=== PATIENT | female | born 1945 | race Caucasian/White ===

== ENCOUNTER → 2016-05-30 08:11 | Outpatient (CLI) | payer MEDICARE | END | disposition home or self-care (01) | LOC: D.NM 08:11 | DX: Z68.20 Body mass index [BMI] 20.0-20.9, adult (principal) ==

== ENCOUNTER → 2017-09-02 19:31 | Outpatient (CLI) | payer MEDICARE | END | disposition home or self-care (01) | LOC: D.MAMMO 09:30 | DX: N63.14 Unspecified lump in the right breast, lower inner quadrant (principal) ==

== ENCOUNTER 2019-05-06 13:00 | Emergency (ER) | payer MEDICARE ==
[~2019-05-06] VITALS: Ht 167.6 cm; Wt 54.5 kg
[2019-05-06 13:14] VITALS: Ht 167.6 cm; Wt 54.5 kg
[2019-05-06] MEDS ORDERED: PROTONIX40 MG PO (13:17)
[2019-05-06] MEDS ORDERED: LISINOPRIL40 MG PO (13:17)
[2019-05-06] MEDS ORDERED: [UNRECOGNIZED DRUG - REMARK] (13:17)
[2019-05-06 14:01] LABS: CALC OSMOLALITY 274 mosm/kg (275-300); CALCIUM 9.1 mg/dL (8.5-10.1); CARBON DIOXIDE 25.3 mmol/L (21.0-32.0); CHLORIDE - SERUM 104 mmol/L (98-107); CREATININE - SERUM 0.7 mg/dL (0.6-1.3); GLUCOSE 80 mg/dL (74-106); SODIUM 139 mmol/L (136-145); UREA NITROGEN 7 mg/dL (7-18); eGFR NON AFRICAN AMERICAN 87 mL/min (90-120)
[2019-05-06 14:03] LABS: BASOPHILS 0.6 % (0-2); EOSINOPHILS 1.9 % (0-7); HEMATOCRIT 43.3 % (36.0-48.0); HEMOGLOBIN 14.7 g/dL (12-16); IMMATURE GRANULOCYTES 0.3 % (0-5); LYMPHOCYTES 36.4 % (15-50); MCH 35.6 pg (26.0-34.0); MCHC 33.9 g/dL (31.0-37.0); MCV 104.8 fL (80.0-100.0); MEAN PLATELET VOLUME 8.7 fL (7.4-10.4); NEUTROPHILS 47.8 % (40-80); PLATELET COUNT 312 10x3/uL (130-400); RBC 4.13 10x6/uL (4.00-5.40); RDW 12.8 % (11.5-14.5); WBC 3.2 10x3/uL (4.8-10.8)
[2019-05-06 14:07] LABS: ALBUMIN 3.6 g/dL (3.4-5.0); ALKALINE PHOSPHATASE 104 U/L (46-116); ALT (SGPT) 40 U/L (10-68); AMYLASE - SERUM 100 U/L (25-115); BILIRUBIN - TOTAL 0.35 mg/dL (0.2-1.3); LIPASE 209 U/L (73-393); PROTEIN - SERUM 7.3 g/dL (6.4-8.2)
[2019-05-06 14:17] LABS: COLOR YELLOW (YELLOW)
[2019-05-06 14:18] LABS: APPEARANCE CLEAR (CLEAR); BACTERIA FEW /hpf (NEGATIVE); BILIRUBIN NEGATIVE (NEGATIVE); EPITHELIAL CELLS OCC /hpf (0-5); GLUCOSE NEGATIVE (NEGATIVE); KETONE NEGATIVE (NEGATIVE); MUCUS <1+ /lpf (NONE SEEN); NITRITE NEGATIVE (NEGATIVE); PROTEIN NEGATIVE (NEGATIVE); RED CELLS - URINE 0-5 /hpf (0-5); SPECIFIC GRAVITY 1.015 (1.005-1.020); UROBILINOGEN NORMAL (NORMAL); WHITE CELLS - URINE RARE /hpf (NEGATIVE)
[2019-05-06 17:13] VITALS: BP 148/76
== END 2019-05-06 17:15 | disposition home or self-care (01) ==
LOC: D.ER 13:00
PROVIDERS: Family Medicine
DX: R10.11 Right upper quadrant pain (principal); R93.89 Abnormal findings on diagnostic imaging of other specified body structures; I10 Essential (primary) hypertension; Z72.0 Tobacco use

== ENCOUNTER 2019-05-28 14:11 | Emergency (ER) | payer MEDICARE ==
[~2019-05-28] VITALS: Ht 167.6 cm; Wt 54.5 kg
[~2019-05-28 14:11] MED LIST: LISINOPRIL40 MG PO; PROTONIX40 MG PO; [UNRECOGNIZED DRUG - REMARK]
[2019-05-28 14:23] VITALS: Ht 167.6 cm; Wt 54.5 kg
[2019-05-28] MEDS ORDERED: ZOFRAN ODT4 MG/UDTAB PO (14:30)
[2019-05-28] MEDS ORDERED: AMOXICILLIN500 M1 PO (14:43)
[2019-05-28] MEDS ORDERED: MUCINEX DM ER1 EAC1 PO (14:43)
[2019-05-28 14:55] VITALS: BP 128/62
== END 2019-05-28 14:57 | disposition home or self-care (01) ==
LOC: D.ER 14:11
DX: J06.9 Acute upper respiratory infection, unspecified (principal); J40 Bronchitis, not specified as acute or chronic; I10 Essential (primary) hypertension; F17.290 Nicotine dependence, other tobacco product, uncomplicated

== ENCOUNTER 2019-06-02 16:26 | Emergency (ER) | payer MEDICARE ==
[~2019-06-02] VITALS: Ht 167.6 cm; Wt 55.5 kg
[~2019-06-02 16:26] MED LIST changes: +AMOXICILLIN500 M1 PO; +MUCINEX DM ER1 EAC1 PO; +ZOFRAN ODT4 MG/UDTAB PO
[2019-06-02 16:44] VITALS: BP 141/79; Ht 167.6 cm; Wt 55.5 kg
[2019-06-02] MEDS ORDERED: DOXYCYCLINE HY100 M2 PO (19:17)
[2019-06-02] MEDS ORDERED: ALBUTEROL SULF8.5 GM INH (19:17)
[2019-06-02] MEDS ORDERED: TESSALON PERLE100 MG PO (19:17)
== END 2019-06-02 19:56 | disposition home or self-care (01) ==
LOC: D.ER 16:26
DX: J40 Bronchitis, not specified as acute or chronic (principal); I10 Essential (primary) hypertension; Z72.0 Tobacco use; K21.9 Gastro-esophageal reflux disease without esophagitis

== ENCOUNTER → 2019-06-10 14:37 | Outpatient (CLI) | payer MEDICARE ==
[2019-06-02 16:44] VITALS: BMI 19.7
[~2019-06-10 14:37] MED LIST changes: +ALBUTEROL SULF8.5 GM INH; +DOXYCYCLINE HY100 M2 PO; +TESSALON PERLE100 MG PO
== END | disposition home or self-care (01) ==
LOC: D.MRI 14:37
PROVIDERS: ATTEND Family Medicine
DX: M54.16 Radiculopathy, lumbar region (principal)

== ENCOUNTER → 2019-06-17 08:21 | Outpatient (CLI) | payer MEDICARE ==
[2019-06-02 16:44] VITALS: BMI 19.7
== END | disposition home or self-care (01) ==
LOC: D.MRI 06-15 10:00
PROVIDERS: ATTEND Family Medicine
DX: K83.1 Obstruction of bile duct (principal)

== ENCOUNTER 2019-09-21 14:50 | Inpatient (IN) | payer MEDICARE ==
[~2019-09-21] VITALS: Ht 167.6 cm; Wt 55.1 kg
--- NOTE | 2019-09-21 15:54 | NUR ---
RECIVED FROM OFFICE. TO ROOM 2127. PER REILLY. ADMIT ASSESSMENT PER RN
[2019-09-21 17:35] VITALS: BP 123/75; Ht 167.6 cm; Wt 55.1 kg
[2019-09-21 18:28] LABS: BASOPHILS 0.1 % (0-2); EOSINOPHILS 0.4 % (0-7); HEMATOCRIT 45.3 % (36.0-48.0); HEMOGLOBIN 15.2 g/dL (12-16); IMMATURE GRANULOCYTES 0.3 % (0-5); MCH 35.8 pg (26.0-34.0); MCHC 33.6 g/dL (31.0-37.0); MCV 106.6 fL (80.0-100.0); MEAN PLATELET VOLUME 9.1 fL (7.4-10.4); MONOCYTES 11.9 % (2-11); NEUTROPHILS 69.3 % (40-80); RBC 4.25 10x6/uL (4.00-5.40); RDW 12.6 % (11.5-14.5); WBC 7.2 10x3/uL (4.8-10.8)
[2019-09-21 18:41] LABS: BILIRUBIN NEGATIVE (NEGATIVE); GLUCOSE NEGATIVE (NEGATIVE); KETONE NEGATIVE (NEGATIVE); NITRITE NEGATIVE (NEGATIVE); RED CELLS - URINE 0-5 /hpf (0-5); UROBILINOGEN NORMAL (NORMAL)
[2019-09-21 18:42] LABS: BACTERIA FEW /hpf (NEGATIVE); WHITE CELLS - URINE OCC /hpf (NEGATIVE)
[2019-09-21 18:42] LABS: PLATELET COUNT 194 10x3/uL (130-400)
[2019-09-21 18:55] LABS: ANION GAP 16.4 mmol/L (8-16); BILIRUBIN - TOTAL 0.76 mg/dL (0.2-1.3); CALCIUM 8.6 mg/dL (8.5-10.1); CARBON DIOXIDE 25.5 mmol/L (21.0-32.0); CREATININE - SERUM 1.1 mg/dL (0.6-1.3); POTASSIUM - SERUM 3.9 mmol/L (3.5-5.1); PROTEIN - SERUM 7.5 g/dL (6.4-8.2)
--- NOTE | 2019-09-21 19:10 | NUR ---
CL ANSWERED, PT STATED THAT HER IV ISNT WORKING BECAUSE THE "BIG BAG ISNT DRIPPING" EXPLAINED TO PT THAT THE LITTLE BAG, WHICH IS HER ANTIBIOTIC, IS INFUSING RIGHT NOW SO THATS WHY THE BIG BAG OF SALINE ISNT, BUT WHEN THE LITTLE BAG OF ANTIBIOTICS IS DONE THE IV MACHINE WILL TRANSFER BACK OVER TO THE BIG BAG AND IT WILL START INFUSING AGAIN.
[2019-09-21 20:00] VITALS: BP 148/72
[2019-09-22] VITALS: BP 129/64
--- NOTE | 2019-09-22 02:24 | NUR ---
I have reviewed this patient and I concur with the Shift Assessment completed by the Licensed Practical Nurse today this shift.
--- NOTE | 2019-09-22 03:26 | NUR ---
ENTERED PTS ROOM, IV PUMP TURNED OFF, PT STATED THAT SHE DIDNT KNOW HOW IT HAPPENEND, IV PUMP TURNED BACK ON, NS INFUSING AT 75 CC/HR. IV SITE CLEAN AND DRY, NO SWELLING OR REDNESS NOTED.
[2019-09-22 04:00] VITALS: BP 133/62
[2019-09-22 06:01] LABS: BASOPHILS 0.2 % (0-2); EOSINOPHILS 2.4 % (0-7); HEMATOCRIT 39.8 % (36.0-48.0); HEMOGLOBIN 13.3 g/dL (12-16); IMMATURE GRANULOCYTES 0.5 % (0-5); LYMPHOCYTES 24.9 % (15-50); MCH 35.4 pg (26.0-34.0); MCHC 33.4 g/dL (31.0-37.0); MCV 105.9 fL (80.0-100.0); MEAN PLATELET VOLUME 9.3 fL (7.4-10.4); MONOCYTES 15.2 % (2-11); NEUTROPHILS 56.8 % (40-80); PLATELET COUNT 162 10x3/uL (130-400); RBC 3.76 10x6/uL (4.00-5.40); RDW 12.5 % (11.5-14.5)
[2019-09-22 06:08] LABS: INR 0.99 (0.85-1.17)
[2019-09-22 06:09] LABS: APTT 27.8 SECONDS (22.8-39.4)
[2019-09-22 06:34] LABS: ALBUMIN 3.3 g/dL (3.4-5.0); ALKALINE PHOSPHATASE 88 U/L (30-120); ALT (SGPT) 51 U/L (10-68); BILIRUBIN - TOTAL 1.15 mg/dL (0.2-1.3); CALCIUM 8.1 mg/dL (8.5-10.1); CARBON DIOXIDE 23.1 mmol/L (21.0-32.0); CHLORIDE - SERUM 96 mmol/L (98-107); PHOSPHOROUS 4.4 mg/dL (2.5-4.9); POTASSIUM - SERUM 3.8 mmol/L (3.5-5.1); PRO BNP 49 pg/mL (0-125); PROTEIN - SERUM 6.2 g/dL (6.4-8.2); SODIUM 129 mmol/L (136-145); THYROID STIMULATING HORMONE 1.38 uIU/mL (0.36-3.74); UREA NITROGEN 13 mg/dL (7-18); eGFR NON AFRICAN AMERICAN 75 mL/min (90-120)
[2019-09-22 06:35] LABS: WBC 4.1 10x3/uL (4.8-10.8)
[2019-09-22 06:36] LABS: CALC OSMOLALITY 258 mosm/kg (275-300); CREATININE - SERUM 0.8 mg/dL (0.6-1.3); GLUCOSE 93 mg/dL (74-106)
--- NOTE | 2019-09-22 07:21 | NUR ---
ASSESSMENT DONE. DENIES NEEDS
--- NOTE | 2019-09-22 10:21 | NUR ---
I have reviewed this patient and I concur with the Shift Assessment completed by the Licensed Practical Nurse today this shift.
[2019-09-22 11:09] VITALS: BP 144/60
[2019-09-22 13:49] VITALS: BP 150/70
[2019-09-22 17:24] LABS: BASOPHILS 0.2 % (0-2); EOSINOPHILS 0.8 % (0-7); HEMATOCRIT 38.8 % (36.0-48.0); HEMOGLOBIN 12.9 g/dL (12-16); IMMATURE GRANULOCYTES 0.6 % (0-5); LYMPHOCYTES 19.1 % (15-50); MCH 35.5 pg (26.0-34.0); MCHC 33.2 g/dL (31.0-37.0); MCV 106.9 fL (80.0-100.0); MEAN PLATELET VOLUME 9.5 fL (7.4-10.4); MONOCYTES 13.6 % (2-11); NEUTROPHILS 65.7 % (40-80); PLATELET COUNT 160 10x3/uL (130-400); RBC 3.63 10x6/uL (4.00-5.40); RDW 12.5 % (11.5-14.5); WBC 5.1 10x3/uL (4.8-10.8)
[2019-09-22 17:33] LABS: APTT 28.2 SECONDS (22.8-39.4); INR 0.98 (0.85-1.17); PROTIME 12.9 SECONDS (11.6-15.0)
[2019-09-22 18:31] VITALS: BP 150/70
--- NOTE | 2019-09-22 19:57 | NUR ---
SAND POLISHER AT BED SIDE, PT UP TO SHOWER.
[2019-09-22 20:00] VITALS: BP 147/54
--- NOTE | 2019-09-22 22:33 | NUR ---
ENTERED PTS ROOM, PT AWAKE, LYING IN BED, ASKED IF PT HAD ANY NEEDS AT THIS TIME, PT STATED NO. THIS NURSE NOTICED THAT THE ROOM SMELLED LIKE CIGARETS, WHEN ASKED PT DENIES SMOKING, INFORMED PT THAT SHE IS NOT ALLOWED TO SMOKE IN HER HOSPITAL ROOM, PT STATED UNDERSTANDING.
--- NOTE | 2019-09-23 02:50 | NUR ---
I have reviewed this patient and I concur with the Shift Assessment completed by the Licensed Practical Nurse today this shift.
[2019-09-23 05:30] LABS: BASOPHILS 0.2 % (0-2); EOSINOPHILS 2.4 % (0-7); HEMATOCRIT 36.1 % (36.0-48.0); IMMATURE GRANULOCYTES 0.5 % (0-5); LYMPHOCYTES 25.8 % (15-50); MCH 35.1 pg (26.0-34.0); MCHC 33.2 g/dL (31.0-37.0); MCV 105.6 fL (80.0-100.0); MEAN PLATELET VOLUME 8.9 fL (7.4-10.4); MONOCYTES 15.5 % (2-11); NEUTROPHILS 55.6 % (40-80); PLATELET COUNT 132 10x3/uL (130-400); RBC 3.42 10x6/uL (4.00-5.40); RDW 12.3 % (11.5-14.5); WBC 4.1 10x3/uL (4.8-10.8)
[2019-09-23 06:29] LABS: ALBUMIN 3.1 g/dL (3.4-5.0); ALKALINE PHOSPHATASE 78 U/L (30-120); BILIRUBIN - TOTAL 0.83 mg/dL (0.2-1.3); CALCIUM 7.9 mg/dL (8.5-10.1); CARBON DIOXIDE 24.1 mmol/L (21.0-32.0); CHLORIDE - SERUM 102 mmol/L (98-107); CREATININE - SERUM 0.7 mg/dL (0.6-1.3); GLUCOSE 94 mg/dL (74-106); MAGNESIUM - SERUM 1.9 mg/dL (1.8-2.4); PHOSPHOROUS 3.9 mg/dL (2.5-4.9); PROTEIN - SERUM 5.7 g/dL (6.4-8.2); SODIUM 135 mmol/L (136-145); eGFR NON AFRICAN AMERICAN 87 mL/min (90-120)
[2019-09-23 06:33] LABS: ALT (SGPT) 37 U/L (10-68); CALC OSMOLALITY 267 mosm/kg (275-300); POTASSIUM - SERUM 3.2 mmol/L (3.5-5.1); UREA NITROGEN 8 mg/dL (7-18)
[2019-09-23 07:43] VITALS: BP 88/37
--- NOTE | 2019-09-23 07:50 | NUR ---
ASSESSMEBNT DONE. DENIES NEEDS
[2019-09-23 08:27] VITALS: BP 150/71
[2019-09-23 11:31] VITALS: BP 88/44
[2019-09-23 15:44] VITALS: BP 166/77
--- NOTE | 2019-09-23 18:01 | NUR ---
PT HAS BEEN CONFUSED, AND KNOWS SHE IS SAY IT IS THE ANST. FROM PROCEDURE
[2019-09-23 20:30] VITALS: BP 140/75
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
[2019-09-24 00:30] VITALS: BP 118/57
--- NOTE | 2019-09-24 01:50 | NUR ---
PT RESTING WITH EYES CLOSED. RESP EVEN AND REGULAR. SR UP X3, CALL LIGHT WITHIN REACH AND BED ALARM.
--- NOTE | 2019-09-24 03:42 | NUR ---
PT ALERT AND ORIENTED TO PERSON, PLACE AND TIME AND SITUATION THIS AM. PT WANTING TO GO OUT TO SMOKE. INFORMED PT NO SMOKING IN HOSPITAL OR ON THE GROUNDS. NICOTINE PATCH BROUGHT TO PT. PT AGREED AT FIRST TO WEAR IT BUT DECLINED WHEN SHE WAS TOLD SHE COULD NOT SMOKE WHILE WEARING THE PATCH.
--- NOTE | 2019-09-24 04:15 | NUR ---
PT RESTING WITH EYES CLOSED. RESP EVEN AND REGULAR. SR UP X3, CALL LIGHT WITHIN REACH.
[2019-09-24 04:45] VITALS: BP 129/55
--- NOTE | 2019-09-24 06:31 | NUR ---
PT RESTING WIHT EYES CLOSED THIS AM. RESP EVEN AND REGULAR. NEEDS MET; WILL CONTINUE TO MONITOR.
--- NOTE | 2019-09-24 07:10 | NUR ---
REPORT RECEIVED FROM SENIOR PREMIUM AUDITOR AND PATIENT CARE ASSUMED. PATIENT SITTING UP IN BED AWAKE, ALERT AND ORIENTED X 4. PATIENT IS STABLE AND VSS. PATIENT DENIES ANY NEEDS OR PAIN. WILL CONTINUE WITH PLAN OF CARE. SR UP X 2 BED IN LOW POSITION AND CALL LIGHT IN REACH.
[2019-09-24 07:14] LABS: BASOPHILS 0.1 % (0-2); EOSINOPHILS 0.5 % (0-7); HEMATOCRIT 35.9 % (36.0-48.0); HEMOGLOBIN 11.9 g/dL (12-16); IMMATURE GRANULOCYTES 0.3 % (0-5); MCH 35.2 pg (26.0-34.0); MCHC 33.1 g/dL (31.0-37.0); MCV 106.2 fL (80.0-100.0); MEAN PLATELET VOLUME 9.8 fL (7.4-10.4); NEUTROPHILS 77.1 % (40-80); PLATELET COUNT 124 10x3/uL (130-400); RBC 3.38 10x6/uL (4.00-5.40); RDW 12.7 % (11.5-14.5)
[2019-09-24 07:18] LABS: WBC 9.7 10x3/uL (4.8-10.8)
[2019-09-24 07:28] LABS: ALBUMIN 2.8 g/dL (3.4-5.0); ALKALINE PHOSPHATASE 69 U/L (30-120); BILIRUBIN - TOTAL 1.09 mg/dL (0.2-1.3); CALC OSMOLALITY 261 mosm/kg (275-300); CARBON DIOXIDE 22.4 mmol/L (21.0-32.0); CHLORIDE - SERUM 100 mmol/L (98-107); CREATININE - SERUM 0.6 mg/dL (0.6-1.3); GLUCOSE 81 mg/dL (74-106); MAGNESIUM - SERUM 1.7 mg/dL (1.8-2.4); PHOSPHOROUS 3.1 mg/dL (2.5-4.9); POTASSIUM - SERUM 3.2 mmol/L (3.5-5.1); PROTEIN - SERUM 5.9 g/dL (6.4-8.2); SODIUM 132 mmol/L (136-145); UREA NITROGEN 6 mg/dL (7-18); eGFR NON AFRICAN AMERICAN > 90 mL/min (90-120)
[2019-09-24 07:29] LABS: ALT (SGPT) 26 U/L (10-68)
[2019-09-24 10:10] VITALS: BP 136/59
[2019-09-24 11:08] LABS: ACID FAST SMEAR Negative (()); AFB SPECIMEN PROCESSING Concentration (())
[2019-09-24 12:00] VITALS: BP 148/67
--- NOTE | 2019-09-24 14:52 | NUR ---
PATIENT LAYING IN BED ON BACK WITH EYES CLOSED AND BREATHING EVENLY. WILL CONTINUW WITH PLAN OF CARE. SR UPX 2 BED IN LOW POSITION AND CALL LIGHT IN REACH.
--- NOTE | 2019-09-24 15:03 | NUR ---
PATIENT AMBULATING IN HALLWAY WITH SLOW, STEADY GATE AND MASK ON.
--- NOTE | 2019-09-24 17:34 | NUR ---
RIGHT FOREARM IV INFILLTRATED. RESITED TO LT HAND 22 GAUGE WITH 2 ATTEMPTS. PATIENT TOLERATED WELL. IV FLUIDS AND ANTIBIOTICS INFUSING. WILL CONTINUE TO MONITOR. SR UP X 2 BED IN LOW POSITION AND CALL LIGHT IN REACH.
--- NOTE | 2019-09-24 20:24 | NUR ---
INITIAL ROUNDS COMPLETED AT 1915 HRS. PT DENIED ANY DISCOMFORT. ASSESSMENT COMPLETED AT 1940 HRS. PT ALERT AND ORIENTED TO PERSON, PLACE AND TIME. LIM. IV TO L WRIST WITH NS AT 75CC/HR. IV PATENT. LUNGS DIMINISHED IN BASES BILAT. SR UP X2, CALL LIGHT WITHIN REACH.
[2019-09-24 20:30] VITALS: BP 153/70
--- NOTE | 2019-09-24 22:07 | NUR ---
PM MEDS GIVEN. PT REFUSED TESSALON PERLE. PT CURRENTLY WATCHING TV. SR UP X2, CALL LIGHT WITHIN REACH.
--- NOTE | 2019-09-25 00:36 | NUR ---
PT RESTING WITH EYES CLOSED. RESP EVEN AND REGULAR. SR UP X2, CALL LIGHT WITHIN REACH.
--- NOTE | 2019-09-25 02:10 | NUR ---
PT RESTING WITH EYES CLOSED. RESP EVEN AND REGULAR. SR UP X2, CALL LIGHT WITHIN REACH.
--- NOTE | 2019-09-25 04:01 | NUR ---
PT RESTING WITH EYES CLOSED. RESP EVEN AND REGULAR. SR UP X2, CALL LIGHT WITHIN REACH.
[2019-09-25 04:30] VITALS: BP 152/77
--- NOTE | 2019-09-25 06:24 | NUR ---
VSS THROUGHOUT NIGHT. PT DENIED ANY DISCOMFORT. PT RESTED WELL DURING SHIFT. NEEDS MET; WILL CONTINUE TO MONITOR.
[2019-09-25 06:55] LABS: BASOPHILS 0 % (0-2); EOSINOPHILS 1.7 % (0-7); HEMATOCRIT 35.4 % (36.0-48.0); HEMOGLOBIN 11.6 g/dL (12-16); IMMATURE GRANULOCYTES 0.2 % (0-5); LYMPHOCYTES 16.6 % (15-50); MCH 34.8 pg (26.0-34.0); MCHC 32.8 g/dL (31.0-37.0); MCV 106.3 fL (80.0-100.0); MEAN PLATELET VOLUME 9.2 fL (7.4-10.4); MONOCYTES 18.9 % (2-11); NEUTROPHILS 62.6 % (40-80); PLATELET COUNT 119 10x3/uL (130-400); RBC 3.33 10x6/uL (4.00-5.40); RDW 12.7 % (11.5-14.5); WBC 4.8 10x3/uL (4.8-10.8)
--- NOTE | 2019-09-25 07:20 | NUR ---
RECIEVE REPORT. ALERT AND ORIENTED X4. RECIEVING UPDRAFT TREATMENT. DENIES SOB OR PAIN. CONTINUE PLAN OF CARE AND SAFETY PRECAUTIONS.
[2019-09-25 07:35] LABS: ALBUMIN 2.8 g/dL (3.4-5.0); ALKALINE PHOSPHATASE 65 U/L (30-120); ALT (SGPT) 21 U/L (10-68); BILIRUBIN - TOTAL 0.76 mg/dL (0.2-1.3); CALC OSMOLALITY 267 mosm/kg (275-300); CALCIUM 8.1 mg/dL (8.5-10.1); CARBON DIOXIDE 19.3 mmol/L (21.0-32.0); CHLORIDE - SERUM 104 mmol/L (98-107); CREATININE - SERUM 0.6 mg/dL (0.6-1.3); GLUCOSE 85 mg/dL (74-106); MAGNESIUM - SERUM 1.9 mg/dL (1.8-2.4); PHOSPHOROUS 3.3 mg/dL (2.5-4.9); POTASSIUM - SERUM 3.2 mmol/L (3.5-5.1); PROTEIN - SERUM 5.9 g/dL (6.4-8.2); SODIUM 136 mmol/L (136-145); UREA NITROGEN 5 mg/dL (7-18); eGFR NON AFRICAN AMERICAN > 90 mL/min (90-120)
[2019-09-25 09:00] VITALS: BP 170/92
[2019-09-25 16:00] VITALS: BP 127/67
--- NOTE | 2019-09-25 18:08 | NUR ---
ALERT AND ORIENTED X4. SITTING UP IN BED WATCHING TV. DENIES SOB OR PAIN. CONTINUE PLAN OF CARE AND SAFETY PRECAUTIONS.
[2019-09-25 20:00] VITALS: BP 166/77
--- NOTE | 2019-09-25 20:00 | NUR ---
REPORT RECIEVED AND INITIAL ROUNDS COMPLETED. PT C/O WANTING HER IV REMOVED. SAYING SHE DOESN'T NEED IT, THAT SHE WILL BE GOING HOME. EXPLAINED TO PATIENT THAT SHE AT LEAST NEEDS TO TAKE HER ABT AND THEN IV CAN BE SALINE LOCKED FOR THE NIGHT. CPOC.
--- NOTE | 2019-09-25 23:00 | NUR ---
PT TOOK BEDTIME MEDS, IV ZITHROMAX STARTED. AT THE SENIOR [facility]IVING POINT, PT DEMANDED THE IV ABT BE STOPPED AND IV BE REMOVED. TELLING NURSE SHE IS "DONE" WITH THIS. PT HAS PULLED ON IV SITE UNTIL IT IS ALMOST PULLED OUT. REMOVED IV AT THIS TIME. PT DID RECIEVE HALF OF THE ZITHROMAX. PT STATES SHE CAN START TAKING PILLS, BUT SHE WILL NOT BE STUCK AGAIN.
[2019-09-26 01:26] VITALS: BP 140/75
--- NOTE | 2019-09-26 04:00 | NUR ---
PT HAS RESTED SINCE IV WAS REMOVED. NO NEEDS, NO C/O. SR PER TELEMETRY. CPOC.
--- NOTE | 2019-09-26 04:52 | NUR ---
PT COMPLETELY DRESSED AND WALKING THE HALLWAY AROUND THE UNIT.
[2019-09-26 06:57] LABS: BASOPHILS 0 % (0-2); EOSINOPHILS 0.8 % (0-7); HEMATOCRIT 36.4 % (36.0-48.0); HEMOGLOBIN 12.2 g/dL (12-16); IMMATURE GRANULOCYTES 0.5 % (0-5); LYMPHOCYTES 21.5 % (15-50); MCHC 33.5 g/dL (31.0-37.0); MEAN PLATELET VOLUME 9.3 fL (7.4-10.4); MONOCYTES 18.9 % (2-11); NEUTROPHILS 58.3 % (40-80); RBC 3.49 10x6/uL (4.00-5.40); RDW 12.5 % (11.5-14.5)
[2019-09-26 06:59] LABS: MCV 104.3 fL (80.0-100.0); PLATELET COUNT 186 10x3/uL (130-400); WBC 6.3 10x3/uL (4.8-10.8)
[2019-09-26 07:19] LABS: ALBUMIN 3.2 g/dL (3.4-5.0); ALKALINE PHOSPHATASE 68 U/L (30-120); BILIRUBIN - TOTAL 0.61 mg/dL (0.2-1.3); CALCIUM 8.7 mg/dL (8.5-10.1); CHLORIDE - SERUM 101 mmol/L (98-107); CREATININE - SERUM 0.6 mg/dL (0.6-1.3); GLUCOSE 96 mg/dL (74-106); PHOSPHOROUS 2.9 mg/dL (2.5-4.9); PROTEIN - SERUM 6.9 g/dL (6.4-8.2); SODIUM 135 mmol/L (136-145); eGFR NON AFRICAN AMERICAN > 90 mL/min (90-120)
[2019-09-26 07:20] LABS: ALT (SGPT) 27 U/L (10-68); CALC OSMOLALITY 267 mosm/kg (275-300); POTASSIUM - SERUM 3.7 mmol/L (3.5-5.1); UREA NITROGEN 7 mg/dL (7-18)
--- NOTE | 2019-09-26 07:32 | NUR ---
PT AWAKE AND CONFUSED, CONTINOUSLY WALKING OUT OF HER ROOM AND WONDERING. CONTINULOUSLY REDIRECTED TO ROOM. CL INR EACH, SRX2,
[2019-09-26 09:08] LABS: FUNGUS STAIN Final report (())
[2019-09-26 09:22] VITALS: BP 153/70
[2019-09-26] MEDS ORDERED: LEVOFLOXACIN500 MG PO (11:49)
[2019-09-26] MEDS ORDERED: MUCINEX600 MG PO (11:50)
[2019-09-26] MEDS ORDERED: FLUTICASONE PRO16 GM NASAL (11:50)
[2019-09-26] MEDS ORDERED: TESSALON PERLE100 MG PO (11:50)
[2019-09-26] MEDS ORDERED: PREDNISONE20 MG PO (11:51)
--- NOTE | 2019-09-26 13:39 | MORECARE ---
CASE MANAGEMENT DISCHARGE SUMMARY PATIENT: JASON GREEN UNIT: [id number] ADM DATE: 09/21/19 AGE: 73 : 47 SEX: F ROOM/BED: D.6015 AUTHOR: PITA,DOC PHYSICIAN: REFERRING PHYSICIAN: RAJ BETTS MD DATE OF SERVICE: 09/26/19 Discharge Plan Patient Name: JASON GREEN Facility: [facility]:[place] : 1945 Planned Disposition: Home or Self Care Anticipated Discharge Date: 09/26/19 Discharge Date: Expected LOS: 5 Initial Reviewer: [email or web address] Initial Review Date: 09/21/2019 Generated: 09/26/19 2:38 pm Comments DCP- Discharge Planning Updated by [id number]: Hemalatha Montes on 09/26/19 12:[address] CM met with patient regarding DC needs/plans. Patient is A/O, cries easily. PCP: . [facility]acy: [facility] Patient states she lives alone, independently in her home, with 3 steps at the entry. 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 Emergency contact:: Luisa Monge (sister in [place]) [phone]. Patient denies use of Community resources BUCKLE STRAP PUNCHER. Denies the need for HHS, Rehab, SNF. Denies being hospitalized within the past 30 days. Patient states she will drive herself home, as her car is in the front parking lot.. Declines taxi services. DC IMM signed by patient, declines her copy. DCP- Discharge Planning Updated by [id number]: Hemalatha Montes on 09/26/19 9:[address] Per patient request, a was left admissions line to visit with the patient in regards to payments on her account. DCPIA - Discharge Planning Initial Assessment Updated by [email or web address]: Hemalatha Montes on 09/26/19 1:36 pm * Is the patient Alert and Oriented? Yes * How many steps to enter\exit or inside your home? * PCP Dr. Dayna Bishop * Pharmacy [facility] * Preadmission Environment Home Alone * ADLs Independent * Equipment None * List name and contact numbers for known caregivers / representatives who currently or will assist patient after discharge: Luisa Monge (sister, lives in [place]) [phone] * Verbal permission to speak to the caregivers and representatives has been obtained from the patient. N/A * Community resources currently utilized None * Additional services required to return to the preadmission environment? No * Can the patient safely return to the preadmission environment? Yes * Has this patient been hospitalized within the prior 30 days at any hospital? No Coverage Notice Reviewer: [id number] Aby Montes Notice Issued Date-Time: 09/26/2019 13:37 Notice Type: IM Discharge Notice Notice Delivered To: Patient Relationship to Patient: Self Destination Imagination Coordinator Name: Jason Green Delivery Method: HAND - Hand Delivered Sylvie Days: Prior Verbal Notification: Recipient Understood Notice: Yes Recipient Signature: Yes Med Rec Note Co-signed by Attending: Coverage Notice Comment: DC IMM signed by patient, declined copy. Original on chart. Patient Name: JASON GREEN Page [phone] at 1339 All edits/amendments must be made on the electronic document DICTATION DATE: 09/26/19 1338 VP [employer]: JEREMIAS 09/26/19 1338 RPT#: [id number] DC DATE: STATUS: ADM IN [facility] [address] [place] [address] END OF REPORT
--- NOTE | 2019-09-26 13:56 | NUR ---
I have reviewed this patient and I concur with the Shift Assessment completed by the Licensed Practical Nurse today this shift.
--- NOTE | 2019-09-26 13:58 | NUR ---
PT WAS UPSET SHE WAS NOT YET DISCHARGED. I EXPLAINED THAT I WAS BUSY WITH MULTIPLE PATIENTS BUT DOING MY BEST OF DO HER DISCHARGE. PT ANGRILY WENT TO HER ROOM. CAME OUT LATER BRINGING PHONE TO ME WITH MEDICAID ON THE PHONE TELLING ME TO TELL THEM WHY SHE'S NOT THEIR YET. DID. DISCHARGE. PATIENT ESCORTED OUT VIA AMBULATION, REFUSED WHEELCHAIR AND USED IT TO TRISH HER PERSONAL AFFECTS.
--- NOTE | 2019-09-28 09:22 | MORECARE ---
CASE MANAGEMENT DISCHARGE SUMMARY PATIENT: JASON GREEN UNIT: [id number] ADM DATE: 09/21/19 AGE: 73 : 47 SEX: F ROOM/BED: D.8380 AUTHOR: PITA,DOC PHYSICIAN: REFERRING PHYSICIAN: RAJ BETTS MD DATE OF SERVICE: 09/28/19 Discharge Plan Patient Name: JASON GREEN Facility: [facility]:[place] : 1945 Planned Disposition: Home or Self Care Anticipated Discharge Date: 09/26/19 Discharge Date: 09/26/2019 Expected LOS: 5 Initial Reviewer: ROBERT Initial Review Date: 09/21/2019 Generated: 09/28/19 10:21 am Comments DCP- Discharge Planning Updated by [id number]: Hemalatha Montes on 09/26/19 12:[address] CM met with patient regarding DC needs/plans. Patient is A/O, cries easily. PCP: . [facility]acy: [facility]. Patient states she lives alone, independently in her home, with 3 steps at the entry. 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 Emergency contact:: Luisa Monge (sister in [place]) [phone]. Patient denies use of Community resources UNDERWRITING CLERK. Denies the need for HHS, Rehab, SNF. Denies being hospitalized within the past 30 days. Patient states she will drive herself home, as her car is in the front parking lot.. Declines taxi services. DC IMM signed by patient, declines her copy. DCP- Discharge Planning Updated by [email or web address]: Hemalatha Montes on 09/26/19 9:[address] Per patient request, a was left admissions line to visit with the patient in regards to payments on her account. DCPIA - Discharge Planning Initial Assessment Updated by [email or web address]: Hemalatha Montes on 09/26/19 1:36 pm * Is the patient Alert and Oriented? Yes * How many steps to enter\exit or inside your home? * PCP Dr. Dayna Bishop * Pharmacy [facility] * Preadmission Environment Home Alone * ADLs Independent * Equipment None * List name and contact numbers for known caregivers / representatives who currently or will assist patient after discharge: Luisa Monge (sister, lives in [place]) [phone] * Verbal permission to speak to the caregivers and representatives has been obtained from the patient. N/A * Community resources currently utilized None * Additional services required to return to the preadmission environment? No * Can the patient safely return to the preadmission environment? Yes * Has this patient been hospitalized within the prior 30 days at any hospital? No Coverage Notice Reviewer: [id number] Aby Montes Notice Issued Date-Time: 09/26/2019 13:37 Notice Type: IM Discharge Notice Notice Delivered To: Patient Relationship to Patient: Self Sales Project Administrator Name: Jason Green Delivery Method: HAND - Hand Delivered Sylvie Days: Prior Verbal Notification: Recipient Understood Notice: Yes Recipient Signature: Yes Med Rec Note Co-signed by Attending: Coverage Notice Comment: DC IMM signed by patient, declined copy. Original on chart. Last DP export: 09/26/19 12:39 pm Patient Name: JASON GREEN Page [phone] at 0922 All edits/amendments must be made on the electronic document DICTATION DATE: 09/28/19920 DISCHARGE PLANNER: JEREMIAS 09/28/19920 RPT#: [id number] DC DATE:09/26/19 STATUS: DIS IN [facility] [address] [place] [address] END OF REPORT
== END 2019-09-26 14:03 | disposition home or self-care (01) | DRG 152 ==
LOC: D.M2 14:50
PROVIDERS: Family Medicine; Internal Medicine Pulmonary Disease; ADMIT Family Medicine; ATTEND Family Medicine
DX: J06.9 Acute upper respiratory infection, unspecified (principal); J18.9 Pneumonia, unspecified organism; J96.01 Acute respiratory failure with hypoxia; G93.41 Metabolic encephalopathy; J98.11 Atelectasis; E87.1 Hypo-osmolality and hyponatremia; N17.9 Acute kidney failure, unspecified; I10 Essential (primary) hypertension; K21.9 Gastro-esophageal reflux disease without esophagitis; F10.20 Alcohol dependence, uncomplicated; F17.210 Nicotine dependence, cigarettes, uncomplicated; J43.9 Emphysema, unspecified; D75.89 Other specified diseases of blood and blood-forming organs

== ENCOUNTER 2019-10-16 12:42 | Emergency (ER) | payer MEDICARE ==
[~2019-10-16] VITALS: Ht 167.6 cm; Wt 54.5 kg
[~2019-10-16 12:42] MED LIST changes: +FLUTICASONE PRO16 GM NASAL; +LEVOFLOXACIN500 MG PO; +MUCINEX600 MG PO; +PREDNISONE20 MG PO
[2019-10-16 12:44] VITALS: Ht 167.6 cm; Wt 54.5 kg
[2019-10-16 13:15] LABS: BASOPHILS 0.3 % (0-2); EOSINOPHILS 1.9 % (0-7); HEMATOCRIT 43.9 % (36.0-48.0); HEMOGLOBIN 14.9 g/dL (12-16); IMMATURE GRANULOCYTES 0.3 % (0-5); LYMPHOCYTES 38.8 % (15-50); MCH 36.1 pg (26.0-34.0); MCHC 33.9 g/dL (31.0-37.0); MCV 106.3 fL (80.0-100.0); MEAN PLATELET VOLUME 9.5 fL (7.4-10.4); MONOCYTES 13.2 % (2-11); NEUTROPHILS 45.5 % (40-80); PLATELET COUNT 187 10x3/uL (130-400); RBC 4.13 10x6/uL (4.00-5.40); RDW 13.7 % (11.5-14.5); WBC 3.6 10x3/uL (4.8-10.8)
[2019-10-16 13:32] LABS: CALC OSMOLALITY 261 mosm/kg (275-300); CALCIUM 8.9 mg/dL (8.5-10.1); CHLORIDE - SERUM 97 mmol/L (98-107); CREATININE - SERUM 0.8 mg/dL (0.6-1.3); GLUCOSE 102 mg/dL (74-106); POTASSIUM - SERUM 4.3 mmol/L (3.5-5.1); SODIUM 132 mmol/L (136-145); UREA NITROGEN 5 mg/dL (7-18); eGFR NON AFRICAN AMERICAN 75 mL/min (90-120)
[2019-10-16 13:40] LABS: ALBUMIN 3.9 g/dL (3.4-5.0); ALKALINE PHOSPHATASE 108 U/L (30-120); ALT (SGPT) 63 U/L (10-68); BILIRUBIN - TOTAL 0.85 mg/dL (0.2-1.3); PROTEIN - SERUM 7.6 g/dL (6.4-8.2); TROPONIN-I < 0.017 ng/mL (0.000-0.060)
[2019-10-16 14:20] LABS: BILIRUBIN NEGATIVE (NEGATIVE); GLUCOSE NEGATIVE (NEGATIVE); KETONE NEGATIVE (NEGATIVE); NITRITE NEGATIVE (NEGATIVE); UROBILINOGEN NORMAL (NORMAL)
[2019-10-16 14:21] LABS: BACTERIA FEW /hpf (NEGATIVE); EPITHELIAL CELLS NSEEN /hpf (0-5); RED CELLS - URINE 0-5 /hpf (0-5); WHITE CELLS - URINE 0-5 /hpf (NEGATIVE)
[2019-10-16 14:22] LABS: HYALINE CAST 0-5 /lpf (NONE SEEN)
[2019-10-16 16:26] VITALS: BP 146/72
== END 2019-10-16 16:26 | disposition home or self-care (01) ==
LOC: D.ER 12:42
PROVIDERS: Family Medicine
DX: E86.0 Dehydration (principal); R06.02 Shortness of breath; R05 Cough; R53.1 Weakness; I10 Essential (primary) hypertension; Z72.0 Tobacco use; K21.9 Gastro-esophageal reflux disease without esophagitis

== ENCOUNTER 2019-12-25 13:59 | Inpatient (IN) | payer MEDICARE ==
[~2019-12-25] VITALS: Ht 167.6 cm; Wt 54.4 kg
--- NOTE | 2019-12-25 15:02 | NUR ---
LACTIC ACID ELEVATED, CODE SEPSIS CALLED ON PT. BLOOD CULTURES DRAWN AND BOLUS STARTED ALONG WITH ANTIBIOTICS.
[2019-12-25 15:43] LABS: BASOPHILS 0.3 % (0-2); EOSINOPHILS 0 % (0-7); HEMATOCRIT 47.2 % (36.0-48.0); HEMOGLOBIN 16.5 g/dL (12-16); MCH 36.5 pg (26.0-34.0); MCV 104.4 fL (80.0-100.0); MEAN PLATELET VOLUME 9.5 fL (7.4-10.4); MONOCYTES 9.2 % (2-11); NEUTROPHILS 71.5 % (40-80); RBC 4.52 10x6/uL (4.00-5.40); RDW 12.2 % (11.5-14.5); WBC 3.7 10x3/uL (4.8-10.8)
[2019-12-25 15:44] LABS: APTT 26.1 SECONDS (22.8-39.4); CALC OSMOLALITY 257 mosm/kg (275-300); CALCIUM 8.6 mg/dL (8.5-10.1); CARBON DIOXIDE 22.1 mmol/L (21.0-32.0); CHLORIDE - SERUM 95 mmol/L (98-107); CREATININE - SERUM 0.7 mg/dL (0.6-1.3); GLUCOSE 88 mg/dL (74-106); INR 0.95 (0.85-1.17); POTASSIUM - SERUM 4.3 mmol/L (3.5-5.1); PROTIME 12.6 SECONDS (11.6-15.0); SODIUM 130 mmol/L (136-145); UREA NITROGEN 7 mg/dL (7-18); eGFR NON AFRICAN AMERICAN 87 mL/min (90-120)
[2019-12-25 15:45] LABS: PLATELET COUNT 94 10x3/uL (130-400)
[2019-12-25 15:47] LABS: PLATELET ESTIMATE DECREASED
[2019-12-25 15:58] LABS: ALBUMIN 3.5 g/dL (3.4-5.0); ALKALINE PHOSPHATASE 105 U/L (30-120); ALT (SGPT) 122 U/L (10-68); BILIRUBIN - TOTAL 0.94 mg/dL (0.2-1.3); CKMB 0.8 U/L (0.0-3.6); CREATINE KINASE 68 UL (21-215); PRO BNP 31 pg/mL (0-125); PROTEIN - SERUM 6.7 g/dL (6.4-8.2)
[2019-12-25 16:02] LABS: TROPONIN-I < 0.017 ng/mL (0.000-0.060)
[2019-12-25 16:12] LABS: NITRITE NEGATIVE (NEGATIVE)
[2019-12-25 16:13] LABS: BILIRUBIN NEGATIVE (NEGATIVE); GLUCOSE NEGATIVE (NEGATIVE); KETONE SMALL mg/dL (NEGATIVE); UROBILINOGEN NORMAL (NORMAL)
[2019-12-25 16:18] LABS: BACTERIA FEW /hpf (NEGATIVE); EPITHELIAL CELLS 0-5 /hpf (0-5); RED CELLS - URINE 0-5 /hpf (0-5); WHITE CELLS - URINE 0-5 /hpf (NEGATIVE)
--- NOTE | 2019-12-25 20:18 | NUR ---
PT TO ROOM 2138 VIA STRETCHER ACCOMPANIED BY HOSPITAL STAFF.
--- NOTE | 2019-12-25 20:42 | NUR ---
PAGED CARSON ABOUT LACTIC ACID 4.0
[2019-12-25 21:30] VITALS: BP 152/48
[2019-12-26 03:13] VITALS: BP 152/48; BMI 19.4
[2019-12-26 04:30] VITALS: BP 123/52
[2019-12-26 07:30] LABS: ALBUMIN 3.2 g/dL (3.4-5.0); ALKALINE PHOSPHATASE 94 U/L (30-120); ALT (SGPT) 92 U/L (10-68); BILIRUBIN - TOTAL 0.91 mg/dL (0.2-1.3); CALCIUM 8.7 mg/dL (8.5-10.1); CARBON DIOXIDE 21.4 mmol/L (21.0-32.0); CHLORIDE - SERUM 96 mmol/L (98-107); CREATININE - SERUM 0.6 mg/dL (0.6-1.3); GLUCOSE 105 mg/dL (74-106); MAGNESIUM - SERUM 1.7 mg/dL (1.8-2.4); POTASSIUM - SERUM 4.5 mmol/L (3.5-5.1); PRO BNP 433 pg/mL (0-125); PROTEIN - SERUM 6.2 g/dL (6.4-8.2); SODIUM 130 mmol/L (136-145); THYROID STIMULATING HORMONE 0.63 uIU/mL (0.36-3.74); eGFR NON AFRICAN AMERICAN > 90 mL/min (90-120)
[2019-12-26 07:31] LABS: CALC OSMOLALITY 259 mosm/kg (275-300); UREA NITROGEN 9 mg/dL (7-18)
[2019-12-26 12:10] VITALS: BP 144/72
[2019-12-26 13:42] LABS: HEMATOCRIT 44.3 % (36.0-48.0); HEMOGLOBIN 15.4 g/dL (12-16); MCH 36.2 pg (26.0-34.0); MCHC 34.8 g/dL (31.0-37.0); MEAN PLATELET VOLUME 10.3 fL (7.4-10.4); PLATELET COUNT 76 10x3/uL (130-400); RBC 4.26 10x6/uL (4.00-5.40); RDW 12.2 % (11.5-14.5); WBC 2.9 10x3/uL (4.8-10.8)
[2019-12-26 14:03] LABS: LYMPHOCYTES 13 % (15-50); MONOCYTES 1 % (2-11); NEUTROPHILS 86 % (40-80); PLATELET ESTIMATE DECREASED
[2019-12-26 14:18] VITALS: Ht 167.6 cm; Wt 54.4 kg
[2019-12-26] MEDS ORDERED: NICODERM CQ1 EAC3 TRANSDERM (16:45)
[2019-12-26] MEDS ORDERED: FEXOFENADINE HC60 MG PO (16:45)
[2019-12-26] MEDS ORDERED: TESSALON PERLE100 MG PO (16:46)
[2019-12-26] MEDS ORDERED: MUCINEX600 MG PO (16:46)
[2019-12-26] MEDS ORDERED: MYSOLINE 50 MG50 MG PO (16:46)
[2019-12-26] MEDS ORDERED: FLUTICASONE PRO16 GM NASAL (16:47)
[2019-12-26] MEDS ORDERED: DOXYCYCLINE HY100 M2 PO (16:48)
[2019-12-26] MEDS ORDERED: PREDNISONE10 MG PO (16:51)
[2019-12-26] MEDS ORDERED: DIFLUCAN150 MG PO (16:52)
--- NOTE | 2019-12-26 17:18 | NUR ---
ESCORTED OUT VIA AMBULATION, DENIES NEED WHEELCHIAR.
== END 2019-12-26 17:19 | disposition home or self-care (01) | DRG 189 ==
LOC: D.ER 13:59 → D.M2 19:00
PROVIDERS: Family Medicine; ADMIT Emergency Medicine; ATTEND Emergency Medicine
DX: J96.01 Acute respiratory failure with hypoxia (principal); E87.1 Hypo-osmolality and hyponatremia; I10 Essential (primary) hypertension; K21.9 Gastro-esophageal reflux disease without esophagitis; F17.200 Nicotine dependence, unspecified, uncomplicated; F10.20 Alcohol dependence, uncomplicated; M19.90 Unspecified osteoarthritis, unspecified site

== ENCOUNTER 2019-12-30 12:18 | Inpatient (IN) | payer MEDICARE ==
[~2019-12-30] VITALS: Ht 167.6 cm; Wt 56.7 kg
[~2019-12-30 12:18] MED LIST changes: +DIFLUCAN150 MG PO; +FEXOFENADINE HC60 MG PO; +MYSOLINE 50 MG50 MG PO; +NICODERM CQ1 EAC3 TRANSDERM; +PREDNISONE10 MG PO
[2019-12-30 13:22] VITALS: BP 141/88
--- NOTE | 2019-12-30 13:47 | NUR ---
NATALY established 22 ga r ac BLOOD OBATINED AND SENT TO LAB.
[2019-12-30 13:50] LABS: BASOPHILS 0.5 % (0-2); HEMOGLOBIN 15.5 g/dL (12-16); LYMPHOCYTES 34.2 % (15-50); MCH 35.8 pg (26.0-34.0); MCHC 34.4 g/dL (31.0-37.0); MCV 103.9 fL (80.0-100.0); MONOCYTES 9.5 % (2-11); NEUTROPHILS 54.8 % (40-80); PLATELET COUNT 90 10x3/uL (130-400); RBC 4.33 10x6/uL (4.00-5.40); RDW 12.3 % (11.5-14.5); WBC 4.1 10x3/uL (4.8-10.8)
[2019-12-30 13:57] LABS: CALC OSMOLALITY 271 mosm/kg (275-300); CALCIUM 7.9 mg/dL (8.5-10.1); CARBON DIOXIDE 28.3 mmol/L (21.0-32.0); CHLORIDE - SERUM 102 mmol/L (98-107); CREATININE - SERUM 0.7 mg/dL (0.6-1.3); GLUCOSE 95 mg/dL (74-106); POTASSIUM - SERUM 3.6 mmol/L (3.5-5.1); SODIUM 137 mmol/L (136-145); UREA NITROGEN 8 mg/dL (7-18); eGFR NON AFRICAN AMERICAN 87 mL/min (90-120)
[2019-12-30 14:03] LABS: ALBUMIN 3.5 g/dL (3.4-5.0); ALKALINE PHOSPHATASE 92 U/L (30-120); ALT (SGPT) 89 U/L (10-68); BILIRUBIN - TOTAL 0.42 mg/dL (0.2-1.3); PROTEIN - SERUM 6.8 g/dL (6.4-8.2)
--- NOTE | 2019-12-30 14:39 | NUR ---
ATTEMPTED TO CALL REPORT, NURSE UNAVAILABLE
[2019-12-30 14:46] LABS: PLATELET ESTIMATE DECREASED
[2019-12-30 15:00] VITALS: BP 156/76
--- NOTE | 2019-12-30 15:02 | NUR ---
REPORT TO GERARDO JAEMS
--- NOTE | 2019-12-30 15:05 | NUR ---
PRIOR TO PT GOING TO FLOOR, SHE STATED "I'M DONE WITH IVF'S. I DON'T WANT IT ANYMORE" IVF'S STOPPED
[2019-12-30 17:58] LABS: UDS - AMPHET NEGATIVE QUAL (NEGATIVE); UDS - BARB NEGATIVE QUAL (NEGATIVE); UDS - BENZO NEGATIVE QUAL (NEGATIVE); UDS - COCAINE NEGATIVE QUAL (NEGATIVE); UDS - OPIATE POSITIVE QUAL (NEGATIVE); UDS - PCP NEGATIVE QUAL (NEGATIVE); UDS - THC NEGATIVE QUAL (NEGATIVE)
[2019-12-30 18:48] VITALS: BP 144/71; BMI 20.2
[2019-12-30 20:30] VITALS: BP 154/76
[2019-12-31] VITALS (7 sets, daily range): BP systolic 124–144; BP diastolic 54–78; Ht 167.6 cm; Wt 56.7 kg
--- NOTE | 2019-12-31 03:42 | NUR ---
ASSESSED AT THE BEGINNING OF THE SHIFT. PT IS ALERT AND ORIENTED, ABLE TO VERBALIZE NEEDS. AT THE VERY START SHE LET US KNOW SHE WAS NOT HAPPY AND WANTED TO GO HOME. SHE WAS UP ABOUT THE ROOM UNTIL NIGHT MEDS WHICH SHE GOT EARLY AND SHE RECEIVED HER LIBRUIM AND ATIVAN AT THAT TIME. SHE HAS BEEN RESTING QUIET EVRE SINCE HER MEDS STARTED WORKING WITH NO DISTRESS NOTED.
[2019-12-31 05:45] LABS: BASOPHILS 0 % (0-2); EOSINOPHILS 0 % (0-7); HEMATOCRIT 41.6 % (36.0-48.0); HEMOGLOBIN 14.4 g/dL (12-16); IMMATURE GRANULOCYTES 0.4 % (0-5); LYMPHOCYTES 25.2 % (15-50); MCH 36.4 pg (26.0-34.0); MCHC 34.6 g/dL (31.0-37.0); MCV 105.1 fL (80.0-100.0); MEAN PLATELET VOLUME 10.4 fL (7.4-10.4); MONOCYTES 8.9 % (2-11); NEUTROPHILS 65.5 % (40-80); PLATELET COUNT 96 10x3/uL (130-400); RBC 3.96 10x6/uL (4.00-5.40); RDW 12.4 % (11.5-14.5); WBC 2.6 10x3/uL (4.8-10.8)
[2019-12-31 05:55] LABS: ALBUMIN 3.2 g/dL (3.4-5.0); ANION GAP 13.4 mmol/L (8-16); BILIRUBIN - TOTAL 0.84 mg/dL (0.2-1.3); CREATININE - SERUM 0.8 mg/dL (0.6-1.3); POTASSIUM - SERUM 4.4 mmol/L (3.5-5.1); PROTEIN - SERUM 6.6 g/dL (6.4-8.2)
--- NOTE | 2019-12-31 07:37 | NUR ---
WALKING ROUNDS COMPLETE, PT LAYING IN BED WITH EYES CLOSED, NO S/S OF PAIN OR NEEDS NOTED, IV INFUSING WITHOUT DIFFICULTY, SITE CLEAR, SR UP X2, CALL LIGHT IN REACH, BED LOW AND LOCKED, WILL CONTINUE TO MONITOR
--- NOTE | 2019-12-31 09:20 | NUR ---
TOOK AM MEDS WITHOUT DIFFICULTY, PT ON PHONE, PT DENIES PAIN OR NEEDS, GAVE PT ATIVAN FOR ANXIETY, WILL MONITOR, BED LOW AND LOCKED, SR UPX2, CALL LIGHT IN REACH
--- NOTE | 2019-12-31 15:49 | NUR ---
PT SHOWERED AND BACK IN BED, NO NEEDS OR PAIN OR DISCOMFORT MENTIONED OR NOTED, SR UP X2, CALL LIGHT IN REACH, BED LOW AND LOCKED, WILL MONITOR
--- NOTE | 2019-12-31 17:13 | NUR ---
PT EATING DINNER, PT DENIES PAIN OR NEEDS AT THIS TIME, BETSEY CONTINUE TO MONITOR
--- NOTE | 2019-12-31 19:42 | NUR ---
RECEIVED REPORT, WILL ASSUME CARE OF PT, VITALS ARE STABLE, NO DISTRESS NOTICED AT THIS TIME, PT IS SITTING UP IN BED, DENIES ANY NEEDS AT THIS TIME, BED IS LOW, SRX2, CALL LIGHT IN REACH, WILL CONTINUE PLAN OF CARE
--- NOTE | 2019-12-31 23:52 | NUR ---
COMPLAINING THAT RT WOKE HER UP TO GIVE BREATHING TREATMENT AND THEY WOULD BE BACK IN 4HRS, SHE SAID THAT THEY SHOULDNT DO TREATMENTS AT NIGHT, PT NEED THEIR REST, EXPLAIN THESE ARE THE DR. ORDERS
[2020-01-01 04:00] VITALS: BP 130/62
--- NOTE | 2020-01-01 04:38 | NUR ---
I have reviewed this patient and I concur with the Shift Assessment completed by the Licensed Practical Nurse today this shift.
[2020-01-01 05:20] LABS: BASOPHILS 0 % (0-2); EOSINOPHILS 0.3 % (0-7); HEMATOCRIT 36.5 % (36.0-48.0); HEMOGLOBIN 12.2 g/dL (12-16); IMMATURE GRANULOCYTES 0.3 % (0-5); LYMPHOCYTES 35.3 % (15-50); MCH 35.2 pg (26.0-34.0); MCHC 33.4 g/dL (31.0-37.0); MCV 105.2 fL (80.0-100.0); MEAN PLATELET VOLUME 9.7 fL (7.4-10.4); MONOCYTES 12.9 % (2-11); NEUTROPHILS 51.2 % (40-80); PLATELET COUNT 94 10x3/uL (130-400); RBC 3.47 10x6/uL (4.00-5.40); RDW 12.4 % (11.5-14.5)
[2020-01-01 05:25] LABS: WBC 3.8 10x3/uL (4.8-10.8)
[2020-01-01 05:36] LABS: PLATELET ESTIMATE DECREASED
[2020-01-01 05:47] LABS: ALBUMIN 2.9 g/dL (3.4-5.0); BILIRUBIN - TOTAL 0.5 mg/dL (0.2-1.3); CALCIUM 7.6 mg/dL (8.5-10.1); CARBON DIOXIDE 24.2 mmol/L (21.0-32.0); CREATININE - SERUM 0.8 mg/dL (0.6-1.3); PROTEIN - SERUM 5.4 g/dL (6.4-8.2)
[2020-01-01 05:49] LABS: ANION GAP 12.8 mmol/L (8-16)
[2020-01-01 08:16] VITALS: BP 137/60
--- NOTE | 2020-01-01 12:32 | NUR ---
PT VERY ANXIOUS STATES THAT SHE WANTS TO GO OUTSIDE TO SMOKER. GAVE HER 1MG OF ATIVAN AT THIS TIME PO. PT DENIES ANY OTHER NEEDS AT THIS TIME. CALL LIGHT IN REACH, NAD NOTED, WILL CONTINUE TO MONITOR.
[2020-01-01 12:57] VITALS: BP 172/75
--- NOTE | 2020-01-01 15:11 | NUR ---
PT REFUSED TO TAKE TESSALON, STATED " I AM TAKING TOO MANY MEDICATIONS, I DONT WANT IT."
[2020-01-01 17:15] VITALS: BP 132/70
--- NOTE | 2020-01-01 19:40 | NUR ---
UP AMBLITORY AROUND THE ROOM AND DENIES NEEDS AT THIS TIME BED LOW AND LOCKED
[2020-01-01 20:00] VITALS: BP 140/69
--- NOTE | 2020-01-01 22:00 | NUR ---
I have reviewed this patient and I concur with the Shift Assessment completed by the Licensed Practical Nurse today this shift.
[2020-01-02] VITALS: BP 161/77
[2020-01-02 04:00] VITALS: BP 126/69
[2020-01-02 07:01] LABS: ALBUMIN 2.8 g/dL (3.4-5.0); ANION GAP 10.1 mmol/L (8-16); BILIRUBIN - TOTAL 0.56 mg/dL (0.2-1.3); CALCIUM 7.9 mg/dL (8.5-10.1); CARBON DIOXIDE 26.1 mmol/L (21.0-32.0); CREATININE - SERUM 0.8 mg/dL (0.6-1.3); POTASSIUM - SERUM 3.2 mmol/L (3.5-5.1); PROTEIN - SERUM 5.6 g/dL (6.4-8.2)
[2020-01-02 07:06] LABS: BASOPHILS 0 % (0-2); EOSINOPHILS 0.5 % (0-7); HEMATOCRIT 36.8 % (36.0-48.0); HEMOGLOBIN 12.4 g/dL (12-16); IMMATURE GRANULOCYTES 0.3 % (0-5); LYMPHOCYTES 40.5 % (15-50); MCH 35.4 pg (26.0-34.0); MCHC 33.7 g/dL (31.0-37.0); MCV 105.1 fL (80.0-100.0); MEAN PLATELET VOLUME 9.7 fL (7.4-10.4); MONOCYTES 16.9 % (2-11); NEUTROPHILS 41.8 % (40-80); PLATELET COUNT 104 10x3/uL (130-400); RDW 12.6 % (11.5-14.5); WBC 3.7 10x3/uL (4.8-10.8)
--- NOTE | 2020-01-02 07:20 | NUR ---
RECEIVE SHIFT REPORT. RESTING IN BED WITH EYES CLOSED. NO SIGNS OF DISTRESS. WILL CONTINUE PLAN OF CARE AND SAFETY PRECAUTIONS.
[2020-01-02 11:35] VITALS: BP 142/75
[2020-01-02 14:47] VITALS: BP 134/92
--- NOTE | 2020-01-02 19:00 | NUR ---
EVENING ROUNDS COMPLETE. PT SITTING ON SIDE OF BED. AAOX4. REQUEST TO TAKE A SHOWER. WRAPED IV TO L FOREARM. PT VOICED THANKS. NO OTHER NEEDS VOICED AT THIS TIME. PT DENIES ANY PAIN. CL IN REACH, BED IN LOWEST POSITION.
[2020-01-02 20:00] VITALS: BP 126/58
--- NOTE | 2020-01-02 22:57 | NUR ---
OT NOTE: PT COMPLETED BED MOB WITH MOD I. PT COMPLETED HYGIENE TASKS WITH SETUP. PT EXHIBITED INTENTION TREMORS. [phone] THANK YOU,RICHELLE BENJAMIN
[2020-01-03 07:01] LABS: BASOPHILS 0 % (0-2); EOSINOPHILS 1.1 % (0-7); HEMATOCRIT 38.6 % (36.0-48.0); LYMPHOCYTES 44.8 % (15-50); MCH 35.2 pg (26.0-34.0); MCHC 33.7 g/dL (31.0-37.0); MCV 104.6 fL (80.0-100.0); MEAN PLATELET VOLUME 9.6 fL (7.4-10.4); MONOCYTES 16.4 % (2-11); NEUTROPHILS 37.7 % (40-80); RBC 3.69 10x6/uL (4.00-5.40); RDW 12.5 % (11.5-14.5); WBC 3.8 10x3/uL (4.8-10.8)
[2020-01-03 07:03] LABS: PLATELET COUNT 128 10x3/uL (130-400)
[2020-01-03 07:17] LABS: ALBUMIN 2.9 g/dL (3.4-5.0); ALKALINE PHOSPHATASE 61 U/L (30-120); ALT (SGPT) 48 U/L (10-68); BILIRUBIN - TOTAL 0.64 mg/dL (0.2-1.3); CARBON DIOXIDE 26.4 mmol/L (21.0-32.0); CHLORIDE - SERUM 104 mmol/L (98-107); CREATININE - SERUM 0.7 mg/dL (0.6-1.3); GLUCOSE 87 mg/dL (74-106); PROTEIN - SERUM 5.7 g/dL (6.4-8.2); SODIUM 139 mmol/L (136-145); eGFR NON AFRICAN AMERICAN 87 mL/min (90-120)
[2020-01-03 07:18] LABS: CALC OSMOLALITY 275 mosm/kg (275-300); UREA NITROGEN 10 mg/dL (7-18)
[2020-01-03 07:58] VITALS: BP 160/67
--- NOTE | 2020-01-03 08:45 | NUR ---
PASSING MORNING MEDICATIONS TO PATIENT AND SHE CHOSE WHICH ONES SHE WANTED TO TAKE AND SAID SHE WAS GOING HOME TODAY WITH OR WITHOUT THE DRS PERMISSION. ENCOURAGED HER TO WAIT FOR THE DR TO ROUND.
--- NOTE | 2020-01-03 09:30 | NUR ---
POTASSIUM 3.0, REPLACED PER PROTOCOL AND ORDER FOR LAB TO BE DRAWN PER PROTOCOL.
[2020-01-03] MEDS ORDERED: LEVOFLOXACIN500 MG PO (11:11)
[2020-01-03] MEDS ORDERED: PREDNISONE10 MG PO (11:12)
[2020-01-03] MEDS ORDERED: IPRAT-ALBUT 0.5-3 ML UPD (11:13)
[2020-01-03 11:40] VITALS: BP 139/76
--- NOTE | 2020-01-03 12:35 | MORECARE ---
CASE MANAGEMENT DISCHARGE SUMMARY PATIENT: JASON GREEN UNIT: [id number] ADM DATE: 12/30/19 AGE: 74 : 47 SEX: F ROOM/BED: D.6663 AUTHOR: PITA,DOC PHYSICIAN: REFERRING PHYSICIAN: RAJ BETTS MD DATE OF SERVICE: 01/03/20 Discharge Plan Patient Name: JASON GREEN Facility: [facility]:[place] : 1945 Planned Disposition: Home Health Service Anticipated Discharge Date: 01/03/20 Discharge Date: Expected LOS: 4 Initial Reviewer: [email or web address] Initial Review Date: 12/30/2019 Generated: 01/03/20 1:35 pm Comments DCP- Discharge Planning Updated by [email or web address]: Hemalatha Montes on 01/03/20 11:[address] Per Adithya with [facility], they are not in network with [facility]. [facility] is in network. CM contacted [facility], who states they can start care on . Faxed required information. Faxed Face Sheet to [facility] to see if they are in network, and Nebulizer order to [facility] with [facility]. CM met with patient to discuss initial discharge planning. Patient is in agreement to proceed with the assessment. Patient reports that she lives at home independently, alone. Patient is alert/oriented, tearful. Stairs/steps: 3. PCP: Dr. Rose. Pharmacy: [facility] Patient states she has been able to obtain all of her prescribed medications, but not take them, because she thought she did not need them. [facility]: Has agreed to [facility], in network with [facility].CM will contact [facility] to see if they are in network. DME: Denies having medical equipment. Nebulizer has been ordered, CM will order one, no specific DME, per patient. Emergency contact: Luisa Monge (sister) [phone]. 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 CM discussed the availability of HH, Rehab, SNF, OP Therapy, DME services. Patient feels safe returning to previous environment. Patient was hospitalized in the past 30 days. Patient denies the use of community resources HOT DIMPLING MACHINE OPERATOR. Transportation at time of discharge:Taxi. Patient states she did not take her medications ,due to Mucinex made her jittery and she felt like she didn't need the antibiotic and steroids. External Providers External Provider: [facility] Next Contact Date: Service Request Date: Service Type: Resolution: Reviewer: Comments: External Provider: Emelia Next Contact Date: Service Request Date: Service Type: Resolution: Reviewer: Comments: External Provider: [facility] Next Contact Date: Service Request Date: Service Type: Resolution: Reviewer: Comments: Coverage Notice Reviewer: [id number] Aby Montes Notice Issued Date-Time: 01/03/2020 12:14 Notice Type: IM Discharge Notice Notice Delivered To: Patient Relationship to Patient: Self Business Integration Analyst Name: Jason Green Delivery Method: HAND - Hand Delivered Sylvie Days: Prior Verbal Notification: Recipient Understood Notice: Yes Recipient Signature: Yes Med Rec Note Co-signed by Attending: Coverage Notice Comment: DC IMM signed/deliverd to patient. Original to chart Reviewer: [id number] Aby Montes Notice Issued Date-Time: 01/03/2020 12:14 Notice Type: Patient Choice Letter Notice Delivered To: Patient Relationship to Patient: Self Business Integration Analyst Name: Jason green Delivery Method: HAND - Hand Delivered Sylvie Days: Prior Verbal Notification: Recipient Understood Notice: Yes Recipient Signature: Yes Med Rec Note Co-signed by Attending: Coverage Notice Comment: Patient choice for Care [facility]. Patient Name: JASON GREEN Page [phone] at 1235 All edits/amendments must be made on the electronic document DICTATION DATE: 01/03/20 1235 TIER TRUCK DRIVER: JEREMIAS 01/03/20 1235 RPT#: [id number] DC DATE: STATUS: ADM IN [facility] [address] [place] [address] END OF REPORT
--- NOTE | 2020-01-03 13:08 | MORECARE ---
CASE MANAGEMENT DISCHARGE SUMMARY PATIENT: JASON GREEN UNIT: [id number] ADM DATE: 12/30/19 AGE: 74 : 47 SEX: F ROOM/BED: D.8209 AUTHOR: PITA,DOC PHYSICIAN: REFERRING PHYSICIAN: RAJ BETTS MD DATE OF SERVICE: 01/03/20 Discharge Plan Patient Name: JASON GREEN Facility: [facility]:[place] : 1945 Planned Disposition: Home Health Service Anticipated Discharge Date: 01/03/20 Discharge Date: Expected LOS: 4 Initial Reviewer: [id number] Initial Review Date: 12/30/2019 Generated: 01/03/20 2:07 pm Comments DCP- Discharge Planning Updated by [email or web address]: Hemalatha Montes on 01/03/20 11:[address] Per Adithya with [facility], they are not in network with [facility]. [facility] is in network. CM contacted Naz, who states they can start care on . Faxed required information. Faxed Face Sheet to [facility] to see if they are in network, and Nebulizer order to [place] with [facility]. CM met with patient to discuss initial discharge planning. Patient is in agreement to proceed with the assessment. Patient reports that she lives at home independently, alone. Patient is alert/oriented, tearful. Stairs/steps: 3. PCP: Dr. Rose. Pharmacy: [facility] Patient states she has been able to obtain all of her prescribed medications, but not take them, because she thought she did not need them. [facility]: Has agreed to [facility], in network with [facility].CM will contact [facility] to see if they are in network. DME: Denies having medical equipment. Nebulizer has been ordered, CM will order one, no specific DME, per patient. Emergency contact: Luisa Monge (sister) [phone]. 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 CM discussed the availability of HH, Rehab, SNF, OP Therapy, DME services. Patient feels safe returning to previous environment. Patient was hospitalized in the past 30 days. Patient denies the use of community resources CHAIR MECHANIC. Transportation at time of discharge:Taxi. Patient states she did not take her medications ,due to Mucinex made her jittery and she felt like she didn't need the antibiotic and steroids. Coverage Notice Reviewer: [email or web address] Aby Garciaa Jyoti Notice Issued Date-Time: 01/03/2020 12:14 Notice Type: IM Discharge Notice Notice Delivered To: Patient Relationship to Patient: Self University Counselor Name: Jason Green Delivery Method: HAND - Hand Delivered Sylvie Days: Prior Verbal Notification: Recipient Understood Notice: Yes Recipient Signature: Yes Med Rec Note Co-signed by Attending: Coverage Notice Comment: DC IMM signed/deliverd to patient. Original to chart Reviewer: [id number] Aby Montes Notice Issued Date-Time: 01/03/2020 12:14 Notice Type: Patient Choice Letter Notice Delivered To: Patient Relationship to Patient: Self University Counselor Name: Jason green Delivery Method: HAND - Hand Delivered Sylvie Days: Prior Verbal Notification: Recipient Understood Notice: Yes Recipient Signature: Yes Med Rec Note Co-signed by Attending: Coverage Notice Comment: Patient choice for Care [facility] IN[facility]. Last DP export: 01/03/20 11:35 a Patient Name: JASON GREEN Page [phone] at 1308 All edits/amendments must be made on the electronic document DICTATION DATE: 01/03/20 1307 FLIGHT ATTENDANT INFLIGHT SERVICES: JEREMIAS 01/03/20 1307 RPT#: [id number] DC DATE: STATUS: ADM IN [facility] [address] [place] [address] END OF REPORT
--- NOTE | 2020-01-03 13:38 | NUR ---
IV REMOVED, DISCHARGE PAPERS WITH PATIENT, TO EXIT VIA WHEELCHAIR AND TAXI HOME.
== END 2020-01-03 13:39 | disposition home health service (06) | DRG 189 ==
LOC: D.ER 12:18 → D.M2 15:03 → D.ER 15:09 → D.M2 01-03 13:39
PROVIDERS: Emergency Medicine; ADMIT Family Medicine; ATTEND Family Medicine
DX: J96.01 Acute respiratory failure with hypoxia (principal); J44.0 Chronic obstructive pulmonary disease with (acute) lower respiratory infection; J44.1 Chronic obstructive pulmonary disease with (acute) exacerbation; J20.9 Acute bronchitis, unspecified; F10.10 Alcohol abuse, uncomplicated; I10 Essential (primary) hypertension; K21.9 Gastro-esophageal reflux disease without esophagitis; F32.9 Major depressive disorder, single episode, unspecified; Z91.19 Patient's noncompliance with other medical treatment and regimen

== ENCOUNTER 2020-01-07 01:08 | Emergency (ER) | payer MEDICARE ==
[~2020-01-07] VITALS: Ht 167.6 cm; Wt 54.4 kg
[~2020-01-07 01:08] MED LIST changes: +IPRAT-ALBUT 0.5-3 ML UPD
[2020-01-07 01:09] VITALS: Ht 167.6 cm; Wt 54.4 kg
[2020-01-07] MEDS ORDERED: ULTRAM50 MG PO (02:31)
[2020-01-07 03:29] VITALS: BP 125/78
== END 2020-01-07 03:30 | disposition home or self-care (01) ==
LOC: D.ER 01:08
DX: S52.602A Unspecified fracture of lower end of left ulna, initial encounter for closed fracture (principal); W01.0XXA Fall on same level from slipping, tripping and stumbling without subsequent striking against object, initial encounter; Y92.002 Bathroom of unspecified non-institutional (private) residence as the place of occurrence of the external cause; I10 Essential (primary) hypertension; J44.9 Chronic obstructive pulmonary disease, unspecified; K21.9 Gastro-esophageal reflux disease without esophagitis; M79.602 Pain in left arm

== ENCOUNTER 2020-01-30 14:23 | Emergency (ER) | payer MEDICARE ==
[~2020-01-30] VITALS: Ht 167.6 cm; Wt 54.5 kg
[~2020-01-30 14:23] MED LIST changes: +ULTRAM50 MG PO
[2020-01-30 14:26] VITALS: Ht 167.6 cm; Wt 54.5 kg
[2020-01-30 15:02] LABS: HEMATOCRIT 41.8 % (36.0-48.0); HEMOGLOBIN 14.9 g/dL (12-16); MCH 35.6 pg (26.0-34.0); MCHC 35.6 g/dL (31.0-37.0); MEAN PLATELET VOLUME 9.9 fL (7.4-10.4); RBC 4.18 10x6/uL (4.00-5.40); RDW 12.7 % (11.5-14.5)
[2020-01-30 15:04] LABS: APTT 27.8 SECONDS (22.8-39.4); INR 0.94 (0.85-1.17); PROTIME 12.5 SECONDS (11.6-15.0)
[2020-01-30 15:09] LABS: CALC OSMOLALITY 254 mosm/kg (275-300); CALCIUM 8.2 mg/dL (8.5-10.1); CHLORIDE - SERUM 90 mmol/L (98-107); CREATININE - SERUM 0.6 mg/dL (0.6-1.3); GLUCOSE 91 mg/dL (74-106); POTASSIUM - SERUM 3.9 mmol/L (3.5-5.1); SODIUM 128 mmol/L (136-145); UREA NITROGEN 6 mg/dL (7-18); eGFR NON AFRICAN AMERICAN > 90 mL/min (90-120)
[2020-01-30 15:25] LABS: ALBUMIN 3.7 g/dL (3.4-5.0); ALKALINE PHOSPHATASE 127 U/L (30-120); ALT (SGPT) 316 U/L (10-68); BILIRUBIN - TOTAL 0.75 mg/dL (0.2-1.3); CKMB 1.3 U/L (0.0-3.6); CREATINE KINASE 65 UL (21-215); PRO BNP 30 pg/mL (0-125); PROTEIN - SERUM 6.7 g/dL (6.4-8.2); TROPONIN-I 0.018 ng/mL (0.000-0.060)
[2020-01-30 15:57] LABS: PLATELET COUNT 84 10x3/uL (130-400); WBC 1.7 10x3/uL (4.8-10.8)
[2020-01-30 16:59] LABS: EOSINOPHILS 2 % (0-7); LYMPHOCYTES 46 % (15-50); MONOCYTES 8 % (2-11); NEUTROPHILS 44 % (40-80); PLATELET ESTIMATE DECREASED
[2020-01-30 17:05] VITALS: BP 122/76
== END 2020-01-30 17:05 | disposition home or self-care (01) ==
LOC: D.ER 14:23
PROVIDERS: Family Medicine
DX: J44.9 Chronic obstructive pulmonary disease, unspecified (principal); R74.8 Abnormal levels of other serum enzymes; Z72.0 Tobacco use; Z91.19 Patient's noncompliance with other medical treatment and regimen; F10.20 Alcohol dependence, uncomplicated; I10 Essential (primary) hypertension; R05 Cough

== ENCOUNTER 2020-02-14 09:10 | Emergency (ER) | payer MEDICARE ==
[~2020-02-14] VITALS: Ht 167.6 cm; Wt 54.5 kg
[2020-02-14 09:17] VITALS: BP 145/82; Ht 167.6 cm; Wt 54.5 kg
[2020-02-14 09:56] LABS: BASOPHILS 0.3 % (0-2); EOSINOPHILS 0 % (0-7); HEMATOCRIT 47.2 % (36.0-48.0); HEMOGLOBIN 16.4 g/dL (12-16); LYMPHOCYTES 29.6 % (15-50); MCH 35.6 pg (26.0-34.0); MCHC 34.7 g/dL (31.0-37.0); MCV 102.4 fL (80.0-100.0); MEAN PLATELET VOLUME 9.5 fL (7.4-10.4); MONOCYTES 8.5 % (2-11); NEUTROPHILS 61.6 % (40-80); PLATELET COUNT 87 10x3/uL (130-400); RBC 4.61 10x6/uL (4.00-5.40); RDW 13.5 % (11.5-14.5); WBC 3.6 10x3/uL (4.8-10.8)
[2020-02-14 10:15] LABS: CALC OSMOLALITY 269 mosm/kg (275-300); CALCIUM 8.8 mg/dL (8.5-10.1); CARBON DIOXIDE 26.1 mmol/L (21.0-32.0); CHLORIDE - SERUM 95 mmol/L (98-107); CREATININE - SERUM 0.8 mg/dL (0.6-1.3); GLUCOSE 82 mg/dL (74-106); POTASSIUM - SERUM 3.8 mmol/L (3.5-5.1); SODIUM 136 mmol/L (136-145); UREA NITROGEN 9 mg/dL (7-18); eGFR NON AFRICAN AMERICAN 75 mL/min (90-120)
[2020-02-14 10:23] LABS: APTT 26.3 SECONDS (22.8-39.4); INR 0.87 (0.85-1.17); PROTIME 11.8 SECONDS (11.6-15.0)
[2020-02-14 10:32] LABS: ALBUMIN 4.2 g/dL (3.4-5.0); ALKALINE PHOSPHATASE 140 U/L (30-120); ALT (SGPT) 314 U/L (10-68); BILIRUBIN - TOTAL 0.72 mg/dL (0.2-1.3); CKMB 1.3 U/L (0.0-3.6); CREATINE KINASE 66 UL (21-215); PROTEIN - SERUM 7.7 g/dL (6.4-8.2)
[2020-02-14 10:33] LABS: TROPONIN-I < 0.017 ng/mL (0.000-0.060)
[2020-02-14 10:46] LABS: PLATELET ESTIMATE DECREASED
== END 2020-02-14 10:59 | disposition home or self-care (01) ==
LOC: D.ER 09:10
PROVIDERS: Family Medicine
DX: Z53.29 Procedure and treatment not carried out because of patient's decision for other reasons (principal); E87.2 Acidosis; J44.9 Chronic obstructive pulmonary disease, unspecified; Z72.0 Tobacco use; R05 Cough; R19.7 Diarrhea, unspecified; R06.02 Shortness of breath

== ENCOUNTER 2020-02-16 12:51 | Emergency (ER) | payer MEDICARE ==
[~2020-02-16] VITALS: Ht 167.6 cm; Wt 54.5 kg
[2020-02-16 12:55] VITALS: BP 91/67; Ht 167.6 cm; Wt 54.5 kg
== END 2020-02-16 13:37 | disposition left against medical advice (07) ==
LOC: D.ER 12:51
DX: R53.1 Weakness (principal); R06.00 Dyspnea, unspecified; J44.9 Chronic obstructive pulmonary disease, unspecified

== ENCOUNTER 2020-02-16 19:17 | Emergency (ER) | payer MEDICARE ==
[~2020-02-16] VITALS: Ht 167.6 cm; Wt 54.5 kg
[2020-02-16 19:22] VITALS: Ht 167.6 cm; Wt 54.5 kg
[2020-02-16 20:06] LABS: BASOPHILS 0.3 % (0-2); EOSINOPHILS 0 % (0-7); HEMATOCRIT 40.9 % (36.0-48.0); HEMOGLOBIN 14.5 g/dL (12-16); IMMATURE GRANULOCYTES 0.3 % (0-5); LYMPHOCYTES 17.6 % (15-50); MCH 35.8 pg (26.0-34.0); MCHC 35.5 g/dL (31.0-37.0); MEAN PLATELET VOLUME 9.5 fL (7.4-10.4); MONOCYTES 9.3 % (2-11); NEUTROPHILS 72.5 % (40-80); RBC 4.05 10x6/uL (4.00-5.40); RDW 13.5 % (11.5-14.5); WBC 3.8 10x3/uL (4.8-10.8)
[2020-02-16 20:08] LABS: CALC OSMOLALITY 260 mosm/kg (275-300); CALCIUM 8.3 mg/dL (8.5-10.1); CARBON DIOXIDE 23.9 mmol/L (21.0-32.0); CHLORIDE - SERUM 93 mmol/L (98-107); CREATININE - SERUM 0.7 mg/dL (0.6-1.3); GLUCOSE 100 mg/dL (74-106); POTASSIUM - SERUM 3.6 mmol/L (3.5-5.1); SODIUM 131 mmol/L (136-145); UREA NITROGEN 8 mg/dL (7-18); eGFR NON AFRICAN AMERICAN 87 mL/min (90-120)
[2020-02-16 20:10] LABS: PLATELET COUNT 60 10x3/uL (130-400)
[2020-02-16 20:21] LABS: ALBUMIN 3.7 g/dL (3.4-5.0); ALKALINE PHOSPHATASE 137 U/L (30-120); ALT (SGPT) 240 U/L (10-68); BILIRUBIN - TOTAL 0.91 mg/dL (0.2-1.3); PROTEIN - SERUM 7.1 g/dL (6.4-8.2); TROPONIN-I < 0.017 ng/mL (0.000-0.060)
[2020-02-16 21:21] LABS: UDS - AMPHET NEGATIVE QUAL (NEGATIVE); UDS - BARB NEGATIVE QUAL (NEGATIVE); UDS - BENZO NEGATIVE QUAL (NEGATIVE); UDS - COCAINE NEGATIVE QUAL (NEGATIVE); UDS - OPIATE NEGATIVE QUAL (NEGATIVE); UDS - PCP NEGATIVE QUAL (NEGATIVE); UDS - THC NEGATIVE QUAL (NEGATIVE)
[2020-02-16 21:23] LABS: BILIRUBIN NEGATIVE (NEGATIVE); KETONE LARGE mg/dL (NEGATIVE); NITRITE NEGATIVE (NEGATIVE); UROBILINOGEN NORMAL mg/dL (< 2)
[2020-02-16 21:24] LABS: BACTERIA FEW HPF (NONE SEEN); GRANULAR CAST OCC LPF (NONE SEEN); WHITE CELLS - URINE OCC HPF (0-4)
[2020-02-16 22:53] VITALS: BP 153/97
== END 2020-02-16 22:53 | disposition home or self-care (01) ==
LOC: D.ER 19:17
PROVIDERS: Emergency Medicine
DX: F10.129 Alcohol abuse with intoxication, unspecified (principal); Y90.9 Presence of alcohol in blood, level not specified; G25.2 Other specified forms of tremor; R94.5 Abnormal results of liver function studies; R74.0 Nonspecific elevation of levels of transaminase and lactic acid dehydrogenase [LDH]; E83.51 Hypocalcemia; E87.1 Hypo-osmolality and hyponatremia; D72.819 Decreased white blood cell count, unspecified; E46 Unspecified protein-calorie malnutrition; D69.6 Thrombocytopenia, unspecified; R53.1 Weakness; J44.9 Chronic obstructive pulmonary disease, unspecified

== ENCOUNTER 2020-02-18 23:27 | Emergency (ER) | payer MEDICARE ==
[~2020-02-18] VITALS: Ht 167.6 cm; Wt 54.5 kg
[2020-02-18 23:34] VITALS: Ht 167.6 cm; Wt 54.5 kg
[2020-02-19] LABS: HEMATOCRIT 36.2 % (36.0-48.0); HEMOGLOBIN 12.6 g/dL (12-16); MCH 34.9 pg (26.0-34.0); MCHC 34.8 g/dL (31.0-37.0); MCV 100.3 fL (80.0-100.0); MEAN PLATELET VOLUME 10.4 fL (7.4-10.4); PLATELET COUNT 58 10x3/uL (130-400); RBC 3.61 10x6/uL (4.00-5.40); RDW 13.4 % (11.5-14.5); WBC 2.8 10x3/uL (4.8-10.8)
[2020-02-19 00:08] LABS: BILIRUBIN NEGATIVE (NEGATIVE); KETONE NEGATIVE (NEGATIVE); NITRITE NEGATIVE (NEGATIVE); UROBILINOGEN NORMAL mg/dL (< 2)
[2020-02-19 00:09] LABS: BACTERIA FEW HPF (NONE SEEN); WHITE CELLS - URINE 0-5 HPF (0-4)
[2020-02-19 00:11] LABS: CALC OSMOLALITY 256 mosm/kg (275-300); CALCIUM 8.2 mg/dL (8.5-10.1); CARBON DIOXIDE 21.8 mmol/L (21.0-32.0); CHLORIDE - SERUM 94 mmol/L (98-107); CREATININE - SERUM 0.6 mg/dL (0.6-1.3); GLUCOSE 141 mg/dL (74-106); POTASSIUM - SERUM 3.2 mmol/L (3.5-5.1); SODIUM 128 mmol/L (136-145); UREA NITROGEN 6 mg/dL (7-18); eGFR NON AFRICAN AMERICAN > 90 mL/min (90-120)
[2020-02-19 00:22] LABS: ALBUMIN 3.5 g/dL (3.4-5.0); ALKALINE PHOSPHATASE 127 U/L (30-120); ALT (SGPT) 205 U/L (10-68); AMYLASE - SERUM 70 U/L (25-115); BILIRUBIN - TOTAL 1.09 mg/dL (0.2-1.3); LIPASE 310 U/L (73-393); PROTEIN - SERUM 6.7 g/dL (6.4-8.2); TROPONIN-I 0.028 ng/mL (0.000-0.060)
[2020-02-19 00:27] LABS: EOSINOPHILS 1 % (0-7); LYMPHOCYTES 19 % (15-50); MONOCYTES 12 % (2-11); NEUTROPHILS 68 % (40-80)
[2020-02-19 00:28] LABS: PLATELET ESTIMATE DECREASED
[2020-02-19] MEDS ORDERED: PEPCID40 MG PO (06:19)
[2020-02-19 06:39] VITALS: BP 130/88
== END 2020-02-19 06:39 | disposition home or self-care (01) ==
LOC: D.ER 23:27
PROVIDERS: Family Medicine
DX: F10.129 Alcohol abuse with intoxication, unspecified (principal); R11.2 Nausea with vomiting, unspecified; I10 Essential (primary) hypertension; F17.200 Nicotine dependence, unspecified, uncomplicated

== ENCOUNTER 2020-02-19 08:54 | Emergency (ER) | payer MEDICARE ==
[~2020-02-19] VITALS: Ht 167.6 cm; Wt 54.5 kg
[~2020-02-19 08:54] MED LIST changes: +PEPCID40 MG PO
[2020-02-19 08:55] VITALS: BP 151/73; Ht 167.6 cm; Wt 54.5 kg
== END 2020-02-19 11:18 | disposition left against medical advice (07) ==
LOC: D.ER 08:54
DX: F10.20 Alcohol dependence, uncomplicated (principal); Z53.29 Procedure and treatment not carried out because of patient's decision for other reasons; I10 Essential (primary) hypertension; Z72.0 Tobacco use

== ENCOUNTER 2020-02-20 09:58 | Emergency (ER) | payer MEDICARE ==
[~2020-02-20] VITALS: Ht 167.6 cm; Wt 54.5 kg
[2020-02-20 10:03] VITALS: BP 146/72; Ht 167.6 cm; Wt 54.5 kg
[2020-02-20 12:09] LABS: BASOPHILS 0 % (0-2); EOSINOPHILS 0.3 % (0-7); HEMATOCRIT 37.3 % (36.0-48.0); HEMOGLOBIN 12.8 g/dL (12-16); LYMPHOCYTES 22.7 % (15-50); MCH 35.1 pg (26.0-34.0); MCHC 34.3 g/dL (31.0-37.0); MCV 102.2 fL (80.0-100.0); MEAN PLATELET VOLUME 10.4 fL (7.4-10.4); MONOCYTES 15.5 % (2-11); NEUTROPHILS 61.5 % (40-80); PLATELET COUNT 55 10x3/uL (130-400); RBC 3.65 10x6/uL (4.00-5.40); RDW 13.4 % (11.5-14.5); WBC 3.2 10x3/uL (4.8-10.8)
[2020-02-20 12:31] LABS: ALBUMIN 3.3 g/dL (3.4-5.0); ALKALINE PHOSPHATASE 156 U/L (30-120); ALT (SGPT) 191 U/L (10-68); BILIRUBIN - TOTAL 1.71 mg/dL (0.2-1.3); CALC OSMOLALITY 262 mosm/kg (275-300); CALCIUM 8.5 mg/dL (8.5-10.1); CARBON DIOXIDE 25.7 mmol/L (21.0-32.0); CHLORIDE - SERUM 95 mmol/L (98-107); CREATININE - SERUM 0.7 mg/dL (0.6-1.3); GLUCOSE 99 mg/dL (74-106); PROTEIN - SERUM 6.5 g/dL (6.4-8.2); SODIUM 132 mmol/L (136-145); UREA NITROGEN 6 mg/dL (7-18); eGFR NON AFRICAN AMERICAN 87 mL/min (90-120)
[2020-02-20 12:57] LABS: POTASSIUM - SERUM 2.8 mmol/L (3.5-5.1)
[2020-02-20 13:48] LABS: PLATELET ESTIMATE DECREASED
== END 2020-02-20 14:09 | disposition left against medical advice (07) ==
LOC: D.ER 09:58
PROVIDERS: Emergency Medicine
DX: E87.6 Hypokalemia (principal); R79.89 Other specified abnormal findings of blood chemistry; E87.1 Hypo-osmolality and hyponatremia; R53.1 Weakness; R06.02 Shortness of breath; I10 Essential (primary) hypertension; J44.9 Chronic obstructive pulmonary disease, unspecified; Z72.0 Tobacco use

== ENCOUNTER 2020-03-11 09:11 | Emergency (ER) | payer MEDICARE ==
[~2020-03-11] VITALS: Ht 167.6 cm; Wt 48.5 kg
[2020-03-11 09:33] VITALS: BP 114/60; Ht 167.6 cm; Wt 48.5 kg
== END 2020-03-11 12:50 | disposition left against medical advice (07) ==
LOC: D.ER 09:11
DX: J06.9 Acute upper respiratory infection, unspecified (principal)

== ENCOUNTER 2020-07-25 16:05 | Emergency (ER) | payer MEDICARE ==
[~2020-07-25] VITALS: Ht 167.6 cm; Wt 54.5 kg
[~2020-07-25 16:05] MED LIST changes: +AZITHROMYCIN500 MG PO; +ELIQUIS5 MG PO; +IPRATROPIUM BRO30 M1 NASAL; +KEFLEX500 MG PO; +NAPROSYN500 MG PO; +NICODERM CQ1 EAC2 TOPICAL; +OMNICEF300 MG PO; +VENTOLIN HFA [SP8 GM INH; +ZPAK PO
[2020-07-25 16:07] VITALS: BP 153/75; Ht 167.6 cm; Wt 54.5 kg
[2020-07-25 16:56] LABS: APTT 25.7 SECONDS (22.8-39.4); INR 0.99 (0.85-1.17); PROTIME 12.1 SECONDS (11.6-15.0)
[2020-07-25 17:00] LABS: HEMATOCRIT 44.6 % (36.0-48.0); HEMOGLOBIN 15.4 g/dL (12-16); LYMPHOCYTE ABS# 0.88 10x3/uL (1.18-3.74); MCH 36.8 pg (26.0-34.0); MCHC 34.5 g/dL (31.0-37.0); MCV 106.4 fL (80.0-100.0); MEAN PLATELET VOLUME 9.9 fL (7.4-10.4); NEUTROPHIL ABS# 1.64 10x3/uL (1.56-6.13); PLATELET COUNT 82 10x3/uL (130-400); RBC 4.19 10x6/uL (4.00-5.40); WBC 2.8 10x3/uL (4.8-10.8)
[2020-07-25 17:29] LABS: ALBUMIN 3.5 g/dL (3.4-5.0); ALKALINE PHOSPHATASE 176 U/L (30-120); ALT (SGPT) 98 U/L (10-68); BILIRUBIN - TOTAL 0.54 mg/dL (0.2-1.3); CALCIUM 8.3 mg/dL (8.5-10.1); CARBON DIOXIDE 25.2 mmol/L (21.0-32.0); CHLORIDE - SERUM 100 mmol/L (98-107); CKMB 1.4 U/L (0.0-3.6); CREATINE KINASE 102 UL (21-215); CREATININE - SERUM 0.6 mg/dL (0.6-1.3); PRO BNP 52 pg/mL (0-125); PROTEIN - SERUM 6.8 g/dL (6.4-8.2); SODIUM 139 mmol/L (136-145); TROPONIN-I < 0.017 ng/mL (0.000-0.060); UREA NITROGEN 5 mg/dL (7-18); eGFR NON AFRICAN AMERICAN > 90 mL/min (90-120)
[2020-07-25 17:30] LABS: CALC OSMOLALITY 273 mosm/kg (275-300); GLUCOSE 80 mg/dL (74-106)
[2020-07-25 17:31] LABS: POTASSIUM - SERUM 2.8 mmol/L (3.5-5.1)
[2020-07-25 18:48] LABS: LYMPHOCYTES 31 % (15-50); MONOCYTES 1 % (2-11); NEUTROPHILS 68 % (40-80); PLATELET ESTIMATE DECREASED
== END 2020-07-25 19:00 | disposition left against medical advice (07) ==
LOC: D.ER 16:05
PROVIDERS: Family Medicine
DX: E86.0 Dehydration (principal); E87.6 Hypokalemia; Z53.29 Procedure and treatment not carried out because of patient's decision for other reasons; F10.129 Alcohol abuse with intoxication, unspecified; I10 Essential (primary) hypertension; J44.9 Chronic obstructive pulmonary disease, unspecified; K21.9 Gastro-esophageal reflux disease without esophagitis; Z72.0 Tobacco use; R09.89 Other specified symptoms and signs involving the circulatory and respiratory systems

== ENCOUNTER 2020-08-16 14:06 | Inpatient (IN) | payer MEDICARE ==
[~2020-08-16] VITALS: Ht 167.6 cm; Wt 48.1 kg
--- NOTE | 2020-08-16 14:24 | NUR ---
PATIENT APPEARS VERY ANXIOUS AND EVEN CONFUSED AT TIMES. PATIENT STATES SHE IS STARVING THAT SHE LIVES BY HERSELF AND DIDN'T FEEL LIKE GETTING UP TO GET ANYTHING TO EAT TODAY. PATIENT REFUSES BLOOD PRESSURE CUFF ON HER ARM AND REFUSES TO HAVE DOOR CLOSED. CALL MAGDALENO IN REACH, SIDE RAILS UP X 2, BED IN LOW POSITION. AWAKE AND ALERT.
--- NOTE | 2020-08-16 14:41 | NUR ---
spoke with aidee who lives in [place] who is very concerned about the patient. patient has home health but niece feels like she needs more care at home and that she may be unsafe. states [facility] patient and told her she had liver problems and high ammonia levels, that she has had diarrhea for weeks, states she has bruises everywhere and appears forgetful and confused at times when talking to her. dr. pace made aware and embedded case manager called to notify of [facility] case. Niece - Teresa Fátima [phone], Sister- Luisa Sam [phone].
[2020-08-16 14:45] LABS: BASOPHILS 0.7 % (0-2); EOSINOPHILS 0.5 % (0-7); HEMATOCRIT 41.4 % (36.0-48.0); HEMOGLOBIN 14.2 g/dL (12-16); IMMATURE GRANULOCYTES 0.2 % (0-5); LYMPHOCYTE ABS# 0.74 10x3/uL (1.18-3.74); LYMPHOCYTES 17.2 % (15-50); MCH 36.8 pg (26.0-34.0); MCHC 34.3 g/dL (31.0-37.0); MCV 107.3 fL (80.0-100.0); MEAN PLATELET VOLUME 9.9 fL (7.4-10.4); MONOCYTES 8.6 % (2-11); NEUTROPHIL ABS# 3.12 10x3/uL (1.56-6.13); NEUTROPHILS 72.8 % (40-80); RBC 3.86 10x6/uL (4.00-5.40); RDW 13.2 % (11.5-14.5); WBC 4.3 10x3/uL (4.8-10.8)
[2020-08-16 14:48] LABS: PLATELET COUNT 127 10x3/uL (130-400)
--- NOTE | 2020-08-16 14:53 | NUR ---
spoke with fish manager of case management who said she or another manager of case management would come see the patient and call and speak with family.
[2020-08-16 15:00] LABS: APTT 26.7 SECONDS (22.8-39.4); INR 1.08 (0.85-1.17)
[2020-08-16 15:07] LABS: ALBUMIN 3.1 g/dL (3.4-5.0); ALKALINE PHOSPHATASE 163 U/L (30-120); ALT (SGPT) 86 U/L (10-68); BILIRUBIN - TOTAL 0.93 mg/dL (0.2-1.3); CALCIUM 8.4 mg/dL (8.5-10.1); CARBON DIOXIDE 25.8 mmol/L (21.0-32.0); CHLORIDE - SERUM 101 mmol/L (98-107); CKMB 0.9 U/L (0.0-3.6); CREATINE KINASE 52 UL (21-215); CREATININE - SERUM 0.7 mg/dL (0.6-1.3); PRO BNP 51 pg/mL (0-125); PROTEIN - SERUM 6.5 g/dL (6.4-8.2); SODIUM 136 mmol/L (136-145); UREA NITROGEN 7 mg/dL (7-18); eGFR NON AFRICAN AMERICAN 87 mL/min (90-120)
[2020-08-16 15:09] LABS: CALC OSMOLALITY 272 mosm/kg (275-300); GLUCOSE 145 mg/dL (74-106)
[2020-08-16 15:10] LABS: TROPONIN-I < 0.017 ng/mL (0.000-0.060)
[2020-08-16 15:12] LABS: POTASSIUM - SERUM 2.5 mmol/L (3.5-5.1)
--- NOTE | 2020-08-16 15:58 | MORECARE ---
CASE MANAGEMENT DISCHARGE SUMMARY PATIENT: CAROLINE GREEN UNIT: [id number] ADM DATE: AGE: 74 : 47 SEX: F ROOM/BED: AUTHOR: PITA,DOC PHYSICIAN: REFERRING PHYSICIAN: CA JUDD MD DATE OF SERVICE: 08/16/20 Case Management Discharge Planning Summary DCP REVIEW SUMMARY ANTICIPATED D/C DATE: EXPECTED LOS : CASE STATUS: DCP Initiated INITIAL REVIEW: 08/16/2020 INITIAL REVIEWER: Judit Domingo FINAL DISCHARGE DISPOSITION: : FINAL REVIEWER: FINAL REVIEW DATE: DCP Focus Questions & Answers - Added on: QUESTION: ANSWER : PATIENT: CAROLINE GREEN ENCOUNTER: [id number] MEDICAL RECORD#: [id number] ADMISSION DATE: 08/16/2020 DISCHARGE DATE: ATTENDING MD: CA ROBBINS : AGE: 74 MARITAL STATUS: S DC PLAN ID: [id number] FACILITY: [facility] PRINTED ON: 08/16/20 15:58 CT All edits/amendments must be made on the electronic document DICTATION DATE: 08/16/201557 BUSINESS PROCESS MODELER: DM 08/16/20 1558 RPT#: [id number] DC DATE: STATUS: REG ER [facility] [address] [place] [address] END OF REPORT
--- NOTE | 2020-08-16 16:10 | MORECARE ---
CASE MANAGEMENT DISCHARGE SUMMARY PATIENT: CAROLINE GREEN UNIT: [id number] ADM DATE: AGE: 74 : 47 SEX: F ROOM/BED: AUTHOR: PITA,DOC PHYSICIAN: REFERRING PHYSICIAN: CA JUDD MD DATE OF SERVICE: 08/16/20 Case Management Discharge Planning Summary DCP REVIEW SUMMARY ANTICIPATED D/C DATE: EXPECTED LOS : CASE STATUS: DCP Initiated INITIAL REVIEW: 08/16/2020 INITIAL REVIEWER: Judit Domingo FINAL DISCHARGE DISPOSITION: : FINAL REVIEWER: FINAL REVIEW DATE: DCP Focus Questions & Answers DCP REV -DCP Review Added on: 08/16/20 4:04 pm QUESTION: ANSWER DCP Screen High Risk Factors: : 3 or more ED visits within the last 60 days DCP Evaluation Patient's ability to cope with chronic illness : d. No chronic illness Mental health screen: : No mental health history Would patient like to participate in any Care Coordination programs (if applicable): : Not applicable Patient gives permission to discuss discharge plans with: (name, relationship and number) : Racheal Phillips, Luisa Sam, , Physical Status: : Compromised nutritional status Baseline cognitive status: : *Oriented to person, place, situation, time and present DCP Re-evaluation Would patient like to participate in any Care Coordination programs (if applicable): : Not applicable PATIENT: CAROLINE GREEN ENCOUNTER: [id number] MEDICAL RECORD#: [id number] ADMISSION DATE: 08/16/2020 DISCHARGE DATE: ATTENDING MD: CA ROBBINS : AGE: 74 MARITAL STATUS: S DC PLAN ID: [id number] FACILITY: [facility] PRINTED ON: 08/16/20 16:10 CT All edits/amendments must be made on the electronic document DICTATION DATE: 08/16/201609 SERVICE COUNTER CASHIER: JEREMIAS 08/16/20 161 RPT#: [id number] DC DATE: STATUS: REG [facility] [address] [place] [address] END OF REPORT
--- NOTE | 2020-08-16 16:13 | NUR ---
PT SPOUSE ON PHONE STATES SHE IS ON PT CELL PHONE. [phone]
--- NOTE | 2020-08-16 16:23 | MORECARE ---
CASE MANAGEMENT DISCHARGE SUMMARY PATIENT: CAROLINE GREEN UNIT: [id number] ADM DATE: AGE: 74 : 47 SEX: F ROOM/BED: AUTHOR: PITADOC PHYSICIAN: REFERRING PHYSICIAN: CA JUDD MD DATE OF SERVICE: 08/16/20 Case Management Discharge Planning Summary DCP REVIEW SUMMARY ANTICIPATED D/C DATE: EXPECTED LOS : CASE STATUS: DCP Initiated INITIAL REVIEW: 08/16/2020 INITIAL REVIEWER: Judit Domingo FINAL DISCHARGE DISPOSITION: : FINAL REVIEWER: FINAL REVIEW DATE: DCP Focus Questions & Answers DCP REV -DCP Review Added on: 08/16/20 4:04 pm QUESTION: ANSWER DCP Screen High Risk Factors: : 3 or more ED visits within the last 60 days DCP Evaluation Patient's ability to cope with chronic illness : d. No chronic illness Mental health screen: : No mental health history Would patient like to participate in any Care Coordination programs (if applicable): : Not applicable Patient gives permission to discuss discharge plans with: (name, relationship and number) : Racheal Phillips, Sister Magaña, Physical Status: : Compromised nutritional status Baseline cognitive status: : *Oriented to person, place, situation, time and present Medication Management: : Patient states can afford medications Pharmacy name(s): : [facility] Does Patient have transportation to get home and to follow-up medical appointments when discharged from the hospital? : Yes Does the patient have electricity at home? : Yes Does the patient have running water in their house? : Yes Equipment in use: : Nebulizer Equipment agency name and contact information: : [facility] Psychosocial status: : Independent adult (65+) Abuse/Neglect: : Alcohol use - History of Resources / Services in place: : Home health Patient's current cognitive status: : *Oriented to person, place, situation, time and present DCP Re-evaluation Would patient like to participate in any Care Coordination programs (if applicable): : Not applicable PATIENT: CAROLINE GREEN ENCOUNTER: [id number] MEDICAL RECORD#: [id number] ADMISSION DATE: 08/16/2020 DISCHARGE DATE: ATTENDING MD: CA ROBBINS : AGE: 74 MARITAL STATUS: S DC PLAN ID: [id number] FACILITY: [facility] PRINTED ON: 08/16/20 16:23 CT All edits/amendments must be made on the electronic document DICTATION DATE: 08/16/201622 DECAL TRANSFERRER: JEREMIAS 08/16/201622 RPT#: [id number] DC DATE: STATUS: REG ER [facility] [address] [place] [address] END OF REPORT
--- NOTE | 2020-08-16 16:57 | MORECARE ---
CASE MANAGEMENT DISCHARGE SUMMARY PATIENT: CAROLINE GREEN UNIT: [id number] ADM DATE: AGE: 74 : 47 SEX: F ROOM/BED: AUTHOR: PITA,DOC PHYSICIAN: REFERRING PHYSICIAN: CA JUDD MD DATE OF SERVICE: 08/16/20 Case Management Discharge Planning Summary COMMENTS ENTERED DATE: 08/16/20 16:36 CT COMMENT TYPE: Discharge Planning REVIEWER: Judit Domingo CM met with patient to discuss discharge planning / needs. CM discussed availability of home health, rehab services, and medical equipment. Patient states she probably needs Assisted Living but she can't afford it and if it's the kind of place that takes all your money to pay for it, how would she get her cigarettes and wine. She then said that her plan would be to return home at discharge. CM asked patient if she would be willing to consider inpatient rehab if she qualified. Patient stated she wasn't wanting to move in her indefinitely. CM explained that inpatient rehab would be short term. Just long enough to help her get strong enough that she could take care of herself when she went back home. Patient then stated she would be willing to consider that if the doctor thought she needed it. CM obtained verbal consent to speak with patient's sister, Luisa Sam, and her Niece, Teresa Shine, . Patient states she doesn't have a PCP. CM asked patient if she wasn't seeing Dr. Maya any longer and patient replied "No". CM was notified by ER nurse, Cathy, that patient's niece had called concerned about patient going back home. CM called and spoke with niece, Teresa. Teresa informed CM that she felt her aunt had progressively gotten weaker over the last three weeks. She is very concerned and doesn't think the patient is able to take care of herself at home right now. CM and niece discussed Home Health-niece states [facility], [facility], [facility] Living Facilities, Truck Bench Mechanic Care Facilities and Inpatient Rehab. When CM asked niece about ETOH use, Niece states she has talked to her aunt at several different times a day and that her aunt never sounds intoxicated. Niece states she and her mother will encourage patient to participate in therapy so she can get strong enough to return home. CM will continue to follow. DCP REVIEW SUMMARY ANTICIPATED D/C DATE: EXPECTED LOS : CASE STATUS: DCP Initiated INITIAL REVIEW: 08/16/2020 INITIAL REVIEWER: Judit Domingo FINAL DISCHARGE DISPOSITION: : FINAL REVIEWER: FINAL REVIEW DATE: DCP Focus Questions & Answers DCP REV -DCP Review Added on: 08/16/20 4:04 pm QUESTION: ANSWER DCP Screen High Risk Factors: : 3 or more ED visits within the last 60 days DCP Evaluation Patient's ability to cope with chronic illness : d. No chronic illness Mental health screen: : No mental health history Would patient like to participate in any Care Coordination programs (if applicable): : Not applicable Patient gives permission to discuss discharge plans with: (name, relationship and number) : Teresa Fátima Racheal, Luisa Sam, Sister, Physical Status: : Compromised nutritional status Baseline cognitive status: : *Oriented to person, place, situation, time and present Medication Management: : Patient states can afford medications Pharmacy name(s): : [facility] Does Patient have transportation to get home and to follow-up medical appointments when discharged from the hospital? : Yes Does the patient have electricity at home? : Yes Does the patient have running water in their house? : Yes Equipment in use: : Nebulizer Equipment agency name and contact information: : [facility] Psychosocial status: : Independent adult (65+) Abuse/Neglect: : Alcohol use - History of Resources / Services in place: : Home health Patient's current cognitive status: : *Oriented to person, place, situation, time and present DCP Re-evaluation Would patient like to participate in any Care Coordination programs (if applicable): : Not applicable PATIENT: CAROLINE GREEN ENCOUNTER: [id number] MEDICAL RECORD#: [id number] ADMISSION DATE: 08/16/2020 DISCHARGE DATE: ATTENDING MD: CA ROBBINS : AGE: 74 MARITAL STATUS: S DC PLAN ID: [id number] FACILITY: [facility] PRINTED ON: 08/16/20 16:57 CT All edits/amendments must be made on the electronic document DICTATION DATE: 031656 OPERATIONS LIEUTENANT: DM 08/16/201656 RPT#: [id number] DC DATE: STATUS: REG [facility] [address] [place] [address] END OF REPORT
--- NOTE | 2020-08-16 18:15 | NUR ---
PT TO ROOM FROM ER VIA WHEELCHAIR. IV ANTIBIOTICS INFUSING ON ARRIVAL.
[2020-08-16 23:52] VITALS: BP 152/99; BMI 17.2
[2020-08-17] VITALS: BP 109/64
[2020-08-17 01:28] LABS: BILIRUBIN NEGATIVE (NEGATIVE); KETONE NEGATIVE (NEGATIVE); NITRITE NEGATIVE (NEGATIVE); UROBILINOGEN NORMAL mg/dL (< 2)
[2020-08-17 01:29] LABS: BACTERIA FEW HPF (NONE SEEN); SQUAMOUS EPITHELIAL 0-5 HPF (0-4); WHITE CELLS - URINE 0-5 HPF (0-4)
--- NOTE | 2020-08-17 02:48 | NUR ---
PATIENT ANXIOUS. DEMANDED TO HAVE IV DISCONNECTED AFTER ANTIBIOTICS WERE COMPLETED. STATES THAT WE ARE GIVING HER TOO MUCH FLUID. EDUCATED ON POTASSIUM LEVEL AND ORDERS. REFUSED ALL EVENING MEDICATIONS. REFUSED BLOOD SUGAR CHECK. ANXIETY UNRELIEVED BY MADISON MASON.
[2020-08-17 05:29] LABS: HEMOGLOBIN 13.5 g/dL (12-16); LYMPHOCYTE ABS# 0.31 10x3/uL (1.18-3.74); MCH 36.3 pg (26.0-34.0); MCHC 33.8 g/dL (31.0-37.0); MCV 107.5 fL (80.0-100.0); MEAN PLATELET VOLUME 10.5 fL (7.4-10.4); PLATELET COUNT 127 10x3/uL (130-400); RBC 3.72 10x6/uL (4.00-5.40); RDW 12.9 % (11.5-14.5)
[2020-08-17 05:41] LABS: WBC 2.4 10x3/uL (4.8-10.8)
[2020-08-17 05:57] LABS: ALBUMIN 2.8 g/dL (3.4-5.0); ALKALINE PHOSPHATASE 144 U/L (30-120); BILIRUBIN - TOTAL 0.71 mg/dL (0.2-1.3); CALCIUM 8.6 mg/dL (8.5-10.1); CARBON DIOXIDE 29.2 mmol/L (21.0-32.0); CHLORIDE - SERUM 99 mmol/L (98-107); CREATININE - SERUM 0.7 mg/dL (0.6-1.3); GLUCOSE 179 mg/dL (74-106); PROTEIN - SERUM 6.1 g/dL (6.4-8.2); SODIUM 135 mmol/L (136-145); eGFR NON AFRICAN AMERICAN 87 mL/min (90-120)
[2020-08-17 06:00] LABS: ALT (SGPT) 63 U/L (10-68); CALC OSMOLALITY 272 mosm/kg (275-300); POTASSIUM - SERUM 3.4 mmol/L (3.5-5.1); UREA NITROGEN 10 mg/dL (7-18)
--- NOTE | 2020-08-17 07:20 | NUR ---
PATIENT ADMITTED TO SMOKING CIGARETTE IN HER BATHROOM THIS MORNING. REFUSED CONFISCATION OF CIGARETTES, STATES SHE DOESN'T HAVE ANYMORE. EDUCATION PROVIDED ON DANGER OF SMOKING WITH OXYGEN, HOSPITAL POLICY ON SMOKING, FEDERAL REGULATIONS REGARDING SMOKING. . PATIENT STATES THAT NICOTINE PATCHES DONT WORK THE SAME. NOTIFIED NURSE WHEAT FARMER OF INCIDENT.
--- NOTE | 2020-08-17 08:00 | NUR ---
PT RECEIVED AWAKE AND ALERT. ASKING ABOUT IF IV CAN BE REMOVED. INSTRUCTED NEED FOR IV FOR ANTIBIOTICS.
[2020-08-17 08:25] VITALS: BP 136/73
[2020-08-17 10:24] LABS: LYMPHOCYTES 18 % (15-50); MONOCYTES 8 % (2-11); NEUTROPHILS 73 % (40-80); PLATELET ESTIMATE NORMAL; ROULEAUX OCC
--- NOTE | 2020-08-17 10:28 | NUR ---
UPDATED ERNST WHO IS IN [place] ON PLAN OF CARE.
[2020-08-17 11:35] VITALS: BP 164/76
[2020-08-17 13:34] VITALS: Ht 167.6 cm; Wt 48.1 kg
--- NOTE | 2020-08-17 14:24 | NUR ---
STAFF TO COME TO ME WITH CONCERN OF PATIENT SMOKING IN HER ROOM. I ASKED HER ABOUT IT AND SHE GAVE ME HER PYRAMID CIGS AND 7 LIGHTERS. THIS IS PLACED AT THE DESK AND NAME PLACED ON BAG.
[2020-08-17 14:51] VITALS: BP 117/89
--- NOTE | 2020-08-17 19:49 | NUR ---
PT AT THE DESK UPSET SHE DID NOT GET WINE WITH DINNER. NO WINE AVAILABE AT THE DESK. PT REFUSES ATIVAN, NO DISTRESS. WILL CTM.
--- NOTE | 2020-08-17 20:09 | NUR ---
PT AT THE DESK C/O OF HER CALL LIGHT NOT BEING ANSWERED. 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 REFUSING IV FLUIDS. DEMANDING IV BE REMOVED. EDUCATED PT ON NEED FOR IV ANTIBIOTICS THAT ARE CURRENTLY INFUSING. PT GRADY AND AGGRESSIVE WITH STAFF. REFUSES ATIVAN AGAIN WHEN OFFERED. ATTEMPTED TO MEET PT NEEDS. CL IN REACH AND BEING UTALIZED. WILL CTM.
[2020-08-17 21:44] VITALS: BP 151/64
[2020-08-18 01:07] VITALS: BP 129/69
[2020-08-18 05:37] LABS: BASOPHILS 0 % (0-2); EOSINOPHILS 0 % (0-7); HEMATOCRIT 39.8 % (36.0-48.0); IMMATURE GRANULOCYTES 0.2 % (0-5); MCH 35.8 pg (26.0-34.0); MCHC 32.7 g/dL (31.0-37.0); MEAN PLATELET VOLUME 10.8 fL (7.4-10.4); MONOCYTES 11.8 % (2-11); NEUTROPHIL ABS# 3.26 10x3/uL (1.56-6.13); PLATELET COUNT 126 10x3/uL (130-400); RBC 3.63 10x6/uL (4.00-5.40); RDW 13.2 % (11.5-14.5)
[2020-08-18 05:38] LABS: MCV 109.6 fL (80.0-100.0); WBC 4.7 10x3/uL (4.8-10.8)
[2020-08-18 06:10] LABS: ALBUMIN 2.8 g/dL (3.4-5.0); ANION GAP 9.9 mmol/L (8-16); BILIRUBIN - TOTAL 0.64 mg/dL (0.2-1.3); CALCIUM 8.3 mg/dL (8.5-10.1); CARBON DIOXIDE 30.5 mmol/L (21.0-32.0); CREATININE - SERUM 0.8 mg/dL (0.6-1.3); POTASSIUM - SERUM 3.4 mmol/L (3.5-5.1); PROTEIN - SERUM 5.9 g/dL (6.4-8.2)
[2020-08-18 08:25] VITALS: BP 150/70
--- NOTE | 2020-08-18 11:03 | NUR ---
PATIENT SITTING ON SIDE OF BED EATING BREAKFAST AAOX4, RESP EVEN AND NON LABORED, NO S/S OF DISTRESS, MEDICATIONS EXPLAINED TO PATIENT AND LAB RESULTS WENT OVER WELL, PATIENT AGREED TO INFUSING THE POTASSIUM BAG, PT CAME IN AND PATIENT WAS COMPLIANT WITH THEM, NO FURTHER NEEDS AT THIS TIME, KILLIAN, MARITZAP
[2020-08-18 11:12] VITALS: BP 148/82
--- NOTE | 2020-08-18 15:46 | NUR ---
I have reviewed this patient and I concur with the Shift Assessment completed by the Licensed Practical Nurse today this shift.
[2020-08-18 17:33] VITALS: BP 147/70
--- NOTE | 2020-08-18 19:55 | NUR ---
INITIAL ROUNDS AND ASSESSMENT COMPLETED. PT RESTING IN BED WITH NO DISTRESS. PLAN OF CARE REVIEWED. CALL LIGHT IN REACH.
[2020-08-18 21:07] VITALS: BP 148/77
[2020-08-19 05:08] LABS: BASOPHILS 0 % (0-2); EOSINOPHILS 0 % (0-7); HEMATOCRIT 38.4 % (36.0-48.0); HEMOGLOBIN 12.6 g/dL (12-16); LYMPHOCYTE ABS# 0.42 10x3/uL (1.18-3.74); LYMPHOCYTES 11.2 % (15-50); MCH 35.9 pg (26.0-34.0); MCHC 32.8 g/dL (31.0-37.0); MCV 109.4 fL (80.0-100.0); MEAN PLATELET VOLUME 10.8 fL (7.4-10.4); MONOCYTES 2.9 % (2-11); NEUTROPHIL ABS# 3.21 10x3/uL (1.56-6.13); NEUTROPHILS 85.9 % (40-80); PLATELET COUNT 125 10x3/uL (130-400); RBC 3.51 10x6/uL (4.00-5.40); RDW 13.1 % (11.5-14.5); WBC 3.7 10x3/uL (4.8-10.8)
[2020-08-19 05:11] VITALS: BP 144/73
[2020-08-19 05:27] LABS: ALBUMIN 2.7 g/dL (3.4-5.0); ALKALINE PHOSPHATASE 107 U/L (30-120); ALT (SGPT) 57 U/L (10-68); BILIRUBIN - TOTAL 0.52 mg/dL (0.2-1.3); CARBON DIOXIDE 26.9 mmol/L (21.0-32.0); CHLORIDE - SERUM 104 mmol/L (98-107); CREATININE - SERUM 0.6 mg/dL (0.6-1.3); POTASSIUM - SERUM 3.4 mmol/L (3.5-5.1); PROTEIN - SERUM 5.6 g/dL (6.4-8.2); SODIUM 139 mmol/L (136-145); UREA NITROGEN 10 mg/dL (7-18); eGFR NON AFRICAN AMERICAN > 90 mL/min (90-120)
[2020-08-19 05:34] LABS: CALC OSMOLALITY 280 mosm/kg (275-300); GLUCOSE 170 mg/dL (74-106)
[2020-08-19 07:51] VITALS: BP 146/76
[2020-08-19] MEDS ORDERED: TESSALON PERLE100 MG PO (08:17)
[2020-08-19] MEDS ORDERED: PREDNISONE10 MG PO (08:18)
[2020-08-19] MEDS ORDERED: AZITHROMYCIN500 MG PO (08:18)
[2020-08-19] MEDS ORDERED: MUCINEX600 MG PO (08:18)
--- NOTE | 2020-08-19 11:25 | MORECARE ---
CASE MANAGEMENT DISCHARGE SUMMARY PATIENT: CAROLINE GREEN UNIT: [id number] ADM DATE: 08/16/20 AGE: 74 : 47 SEX: F ROOM/BED: D.2111 AUTHOR: PITA,DOC PHYSICIAN: REFERRING PHYSICIAN: LONNIE ALCALA DO DATE OF SERVICE: 08/19/20 Case Management Discharge Planning Summary CT Patient Name: CAROLINE GREEN Attending MD : LONNIE FAULKNER Medical Record: [id number] Encounter : [id number] Facility : [address] [place] [address] Admission Date : 117:00 Center Discharge Date : [address] [place] [address] Date of : DC Plan ID : [id number] Age/Sex/Martia : 74/ F/S Printed on : 08/19/20 11:24 CT DCP Review Details Anticipated D/C: Expected LOS : Case Status : INITIATED - Initial Reviewe: [id number] - Judit Domingo Initial Review: 08/16/2020 Planned Disposi: - Final Discharge: 06 - Discharged/Trans to Home Under Care of [facility] in Anticipation of Skilled Care Final Reviewer : [email or web address] : Mario Sousa Final Review : 08/19/[address] Entered Date Type Reviewer 08/16/20 16:36 CT Discharge Planning Judit Domingo Comment CM met with patient to discuss discharge planning / needs. CM discussed availability of home health, rehab services, and medical equipment. Patient states she probably needs Assisted Living but she can't afford it and if it's the kind of place that takes all your money to pay for it, how would she get her cigarettes and wine. She then said that her plan would be to return home at discharge. CM asked patient if she would be willing to consider inpatient rehab if she qualified. Patient stated she wasn't wanting to move in her indefinitely. CM explained that inpatient rehab would be short term. Just long enough to help her get strong enough that she could take care of herself when she went back home. Patient then stated she would be willing to consider that if the doctor thought she needed it. CM obtained verbal consent to speak with patient's sister, Luisa Sam, and her Niece, Teresa Shine, . Patient states she doesn't have a PCP. CM asked patient if she wasn't seeing Dr. Maya any longer and patient replied "No". CM was notified by ER nurse, Cathy, that patient's niece had called concerned about patient going back home. CM called and spoke with niece, Teresa. Teresa informed CM that she felt her aunt had progressively gotten weaker over the last three weeks. She is very concerned and doesn't think the patient is able to take care of herself at home right now. CM and niece discussed Home Health-niece states [facility] from [facility], SNF, Assisted Living Facilities, Surveillance Observer Care Facilities and Inpatient Rehab. When CM asked niece about ETOH use, Niece states she has talked to her aunt at several different times a day and that her aunt never sounds intoxicated. Niece states she and her mother will encourage patient to participate in therapy so she can get strong enough to return home. CM will continue to follow. DCP Focus Questions & Answers DCP Screen High Risk Factors: 3 or more ED visits within the last 60 days DCP Evaluation Patient's current cognitive status: *Oriented to person, place, situation, time and present Patient's ability to cope with chronic illness d. No chronic illness Patient gives permission to discuss discharge Racheal Phillips, plans with: (name, relationship and number) Luisa Sam, Sister, Physical Status: Compromised nutritional status Baseline cognitive status: *Oriented to person, place, situation, time and present Medication Management: Patient states can afford medications Pharmacy name(s): [facility] Does Patient have transportation to get home and Yes to follow-up medical appointments when discharged from the hospital? Would patient like to participate in any Care Not applicable Coordination programs (if applicable): Does the patient have electricity at home? Yes Does the patient have running water in their Yes house? Equipment in use: Nebulizer Equipment agency name and contact information: [facility] screen: No mental health history Psychosocial status: Independent adult (65+) Abuse/Neglect: Alcohol use - History of Resources / Services in place: Home health DCP Re-evaluation Would patient like to participate in any Care Not applicable Coordination programs (if applicable): [facility] CAROLINE GREEN MR#: [id number] /Age/Sex/[id number] /74/F /S Attending Physician Name: BETHANY ACLALA [id number] Patient Account:[id number] [facility] Page -1 of 1 All edits/amendments must be made on the electronic document DICTATION DATE: 08/19/201123 TOURING PRODUCTION MANAGER: JEREMIAS 08/19/201123 RPT#: [id number] DC DATE: STATUS: ADM IN [facility] [address] [place] [address] END OF REPORT
--- NOTE | 2020-08-19 12:23 | MORECARE ---
CASE MANAGEMENT DISCHARGE SUMMARY PATIENT: CAROLINE GREEN UNIT: [id number] ADM DATE: 08/16/20 AGE: 74 : 47 SEX: F ROOM/BED: D.2111 AUTHOR: PITA,DOC PHYSICIAN: REFERRING PHYSICIAN: LONNIE ALCALA DO DATE OF SERVICE: 08/19/20 Case Management Discharge Planning Summary CT Patient Name: CAROLINE GREEN Attending MD : LONNIE FAULKNER Medical Record: [id number] Encounter : [id number] Facility : [address] [place] [address] Admission Date : 117:00 Center Discharge Date : [address] [place] [address] Date of : DC Plan ID : [id number] Age/Sex/Martia : 74/ F/S Printed on : 08/19/20 12:22 CT DCP Review Details Anticipated D/C: Expected LOS : Case Status : INITIATED - Initial Reviewe: [id number] - Jduit Domingo Initial Review: 08/16/2020 Planned Disposi: - Final Discharge: 06 - Discharged/Trans to Home Under Care of [facility] in Anticipation of Skilled Care Final Reviewer : [id number] : Mario Sousa Final Review : 08/19/[address] Entered Date Type Reviewer 08/19/20 12:13 CT Discharge Planning Mario Sousa Comment CM met with patient to complete DC plan and to evaluate needs. Patient stated that she does not want to go back to [facility] for home health. Patient stated that she would like [facility] as her choice. ONEYDA signed for [facility]. Patient stated that she has called [facility] and [facility] and [place] are the only home health agencies in network. CM informed patient that without a PCP then [facility] would be difficult. Patient stated that she will call the two doctors that [facility] told her were in network. Phone call to [facility], spoke with Yue. Yue stated that the referral can be faxed but the weekday team will look at it on Thursday and contact patient for SOC if there are no problems. Clinicals Faxed. Patient voiced no other needs at this time and is satisfied with DC plan. DC IMM delivered, explained, signed by the patient, and placed in chart. Signed form also left with the patient. CM will continue to follow and will assist as needed with dc plans/needs. 08/16/20 16:36 CT Discharge Planning Judit Domingo Comment CM met with patient to discuss discharge planning / needs. CM discussed availability of home health, rehab services, and medical equipment. Patient states she probably needs Assisted Living but she can't afford it and if it's the kind of place that takes all your money to pay for it, how would she get her cigarettes and wine. She then said that her plan would be to return home at discharge. CM asked patient if she would be willing to consider inpatient rehab if she qualified. Patient stated she wasn't wanting to move in her indefinitely. CM explained that inpatient rehab would be short term. Just long enough to help her get strong enough that she could take care of herself when she went back home. Patient then stated she would be willing to consider that if the doctor thought she needed it. CM obtained verbal consent to speak with patient's sister, Luisa Sam, and her Niece, Teresa Shine, . Patient states she doesn't have a PCP. CM asked patient if she wasn't seeing Dr. Maya any longer and patient replied "No". CM was notified by ER nurse, Cathy, that patient's niece had called concerned about patient going back home. CM called and spoke with niece, Teresa. Teresa informed CM that she felt her aunt had progressively gotten weaker over the last three weeks. She is very concerned and doesn't think the patient is able to take care of herself at home right now. CM and aidee discussed Home Health-niece states [facility] from [facility], [facility], [facility] Facilities, [facility] and Inpatient Rehab. When CM asked niece about ETOH use, Niece states she has talked to her aunt at several different times a day and that her aunt never sounds intoxicated. Nishila states she and her mother will encourage patient to participate in therapy so she can get strong enough to return home. CM will continue to follow. DCP Focus Questions & Answers DCP Screen High Risk Factors: 3 or more ED visits within the last 60 days DCP Evaluation Patient's current cognitive status: *Oriented to person, place, situation, time and present Patient's ability to cope with chronic illness d. No chronic illness Patient gives permission to discuss discharge Teresa Madhuri Shineclarence, plans with: (name, relationship and number) Luisa Sam, , Physical Status: Compromised nutritional status Baseline cognitive status: *Oriented to person, place, situation, time and present Medication Management: Patient states can afford medications Pharmacy name(s): [facility] [address] [facility] Does Patient have transportation to get home and Yes to follow-up medical appointments when discharged from the hospital? Would patient like to participate in any Care Not applicable Coordination programs (if applicable): Does the patient have electricity at home? Yes Does the patient have running water in their Yes house? Equipment in use: Nebulizer Equipment agency name and contact information: [facility] Mental health screen: No mental health history Psychosocial status: Independent adult (65+) Abuse/Neglect: Alcohol use - History of Resources / Services in place: Home health DCP Re-evaluation Would patient like to participate in any Care Not applicable Coordination programs (if applicable): [facility] CAROLINE GREEN MR#: [id number] /Age/Sex/Idzmje2-Ull-02 /74/F /S Attending Physician Name: BETHANY ALCALA [id number] Patient Account:[id number] [facility] Page -1 of 1 All edits/amendments must be made on the electronic document DICTATION DATE: 08/19/201221 YOUTH CARE SPECIALIST: JEREMIAS 08/19/20 1222 RPT#: [id number] DC DATE: STATUS: ADM IN [facility] [address] [place] [address] END OF REPORT
--- NOTE | 2020-08-19 12:37 | NUR ---
PT ALERT AND ORIENTED, TO D/C TODAY. REFUSED MEDICATIONS. PT OUT TO DESK FREQUENTLY WITH QUESTIONS, ANSWERED TO THE BEST OF OUR ABILITY. STATES RIDE WILL BE HERE AT 1400 TO GET HER. I/V OUT PER PTS INSITANCE STATING SHE WOULD TAKE IT OUT REGARDLESS. TIP INTACT. PT SOWERED SELF UNASSISTED, NO NOTED OR REPORTED DIFFICULTY. CL IN REACH, SRX2.
--- NOTE | 2020-08-19 13:22 | NUR ---
PT ESCORTED OUT VIA WHEELCHIAR TO POV, FRIEND DRIVING.
--- NOTE | 2020-08-19 13:27 | MORECARE ---
CASE MANAGEMENT DISCHARGE SUMMARY PATIENT: CAROLINE GREEN UNIT: [id number] ADM DATE: 08/16/20 AGE: 74 : 47 SEX: F ROOM/BED: D. AUTHOR: PITA,DOC PHYSICIAN: REFERRING PHYSICIAN: LONNIE ALCALA DO DATE OF SERVICE: 08/19/20 Case Management Discharge Planning Summary CT Patient Name: CAROLINE GREEN Attending MD : LONNIE FAULKNER Medical Record: [id number] Encounter : [id number] Facility : [address] [place] [address] Admission Date : 117:00 Center Discharge Date : 08/19/[address] [place] [address] Date of : DC Plan ID : [id number] Age/Sex/Martia : 74/ F/S Printed on : 08/19/20 13:25 CT DCP Review Details Anticipated D/C: Expected LOS : Case Status : INITIATED - Initial Reviewe: [id number] - Judit Domingo Initial Review: 08/16/2020 Planned Disposi: - Final Discharge: 06 - Discharged/Trans to Home Under Care of [facility] in Anticipation of Skilled Care Final Reviewer : [id number] : Mario Sousa Final Review : 08/19/[address] Entered Date Type Reviewer 08/19/20 12:13 CT Discharge Planning Mario Sousa Comment CM met with patient to complete DC plan and to evaluate needs. Patient stated that she does not want to go back to [facility] for home health. Patient stated that she would like [facility] as her choice. ONEYDA signed for [facility]. Patient stated that she has called [facility] and [facility] and [place] are the only home health agencies in network. CM informed patient that without a PCP then [facility] would be difficult. Patient stated that she will call the two doctors that [facility] told her were in network. Phone call to [facility], spoke with Yue. Yue stated that the referral can be faxed but the weekday team will look at it on Thursday and contact patient for SOC if there are no problems. Clinicals Faxed. Patient voiced no other needs at this time and is satisfied with DC plan. DC IMM delivered, explained, signed by the patient, and placed in chart. Signed form also left with the patient. CM will continue to follow and will assist as needed with dc plans/needs. 08/16/20 16:36 CT Discharge Planning Judit Domingo Comment CM met with patient to discuss discharge planning / needs. CM discussed availability of home health, rehab services, and medical equipment. Patient states she probably needs Assisted Living but she can't afford it and if it's the kind of place that takes all your money to pay for it, how would she get her cigarettes and wine. She then said that her plan would be to return home at discharge. CM asked patient if she would be willing to consider inpatient rehab if she qualified. Patient stated she wasn't wanting to move in her indefinitely. CM explained that inpatient rehab would be short term. Just long enough to help her get strong enough that she could take care of herself when she went back home. Patient then stated she would be willing to consider that if the doctor thought she needed it. CM obtained verbal consent to speak with patient's sister, Luisa Sam, and her Niece, Teresa Shine, . Patient states she doesn't have a PCP. CM asked patient if she wasn't seeing Dr. Maya any longer and patient replied "No". CM was notified by ER nurse, Cathy, that patient's niece had called concerned about patient going back home. CM called and spoke with niece, Teresa. Teresa informed CM that she felt her aunt had progressively gotten weaker over the last three weeks. She is very concerned and doesn't think the patient is able to take care of herself at home right now. CM and nishila discussed Home Health-niece states [facility] from [facility], [facility], [facility], [facility] and Inpatient Rehab. When CM asked niece about ETOH use, Niece states she has talked to her aunt at several different times a day and that her aunt never sounds intoxicated. Nishila states she and her mother will encourage patient to participate in therapy so she can get strong enough to return home. CM will continue to follow. DCP Focus Questions & Answers DCP Screen High Risk Factors: 3 or more ED visits within the last 60 days DCP Evaluation Patient's current cognitive status: *Oriented to person, place, situation, time and present Patient's ability to cope with chronic illness d. No chronic illness Patient gives permission to discuss discharge Teresa VasquezfordRacheal, plans with: (name, relationship and number) Sister Magaña, Physical Status: Compromised nutritional status Baseline cognitive status: *Oriented to person, place, situation, time and present Medication Management: Patient states can afford medications Pharmacy name(s): [facility] Does Patient have transportation to get home and Yes to follow-up medical appointments when discharged from the hospital? Would patient like to participate in any Care Not applicable Coordination programs (if applicable): Does the patient have electricity at home? Yes Does the patient have running water in their Yes house? Equipment in use: Nebulizer Equipment agency name and contact information: [facility] screen: No mental health history Psychosocial status: Independent adult (65+) Abuse/Neglect: Alcohol use - History of Resources / Services in place: Home health DCP Re-evaluation Would patient like to participate in any Care Not applicable Coordination programs (if applicable): [facility] CAROLINE GREEN MR#: [id number] /Age/Sex/Lofxpq7-Gsu-40 /74/F /S Attending Physician Name: BETHANY ALCALA [id number] Patient Account:[id number] [facility] Page -1 of 1 All edits/amendments must be made on the electronic document DICTATION DATE: 08/19/20 1325 CHIN STRAP SEWER: JEREMIAS 08/19/20 1325 RPT#: [id number] DC DATE:08/19/20 STATUS: DIS IN [facility] [address] [place] [address] END OF REPORT
--- NOTE | 2020-08-20 15:53 | MORECARE ---
CASE MANAGEMENT DISCHARGE SUMMARY PATIENT: CAROLINE GREEN UNIT: [id number] ADM DATE: 08/16/20 AGE: 74 : 47 SEX: F ROOM/BED: D. AUTHOR: PITA,DOC PHYSICIAN: REFERRING PHYSICIAN: LONNIE ALCALA DO DATE OF SERVICE: 08/20/20 Case Management Discharge Planning Summary CT Patient Name: CAROLINE GREEN Attending MD : LONNIE FAULKNER Medical Record: [id number] Encounter : [id number] Facility : [address] [place] [address] Admission Date : 117:00 Center Discharge Date : 08/19/[address] [place] [address] Date of : DC Plan ID : [id number] Age/Sex/Martia : 74/ F/S Printed on : 08/20/20 15:52 CT DCP Review Details Anticipated D/C: Expected LOS : Case Status : INITIATED - Initial Reviewe: [id number] - Judit Domingo Initial Review: 08/16/2020 Planned Disposi: - Final Discharge: 06 - Discharged/Trans to Home Under Care of [facility] in Anticipation of Skilled Care Final Reviewer : [id number] : Mario Sousa Final Review : 08/19/[address] Entered Date Type Reviewer 08/19/20 12:13 CT Discharge Planning Mario Sousa Comment CM met with patient to complete DC plan and to evaluate needs. Patient stated that she does not want to go back to [facility] for home health. Patient stated that she would like [facility] as her choice. ONEYDA signed for [facility]. Patient stated that she has called [facility] and [facility] and [facility] are the only home health agencies in network. CM informed patient that without a PCP then [facility] would be difficult. Patient stated that she will call the two doctors that [facility] told her were in network. Phone call to [facility], spoke with Yue. Yue stated that the referral can be faxed but the weekday team will look at it on Thursday and contact patient for SOC if there are no problems. Clinicals Faxed. Patient voiced no other needs at this time and is satisfied with DC plan. DC IMM delivered, explained, signed by the patient, and placed in chart. Signed form also left with the patient. CM will continue to follow and will assist as needed with dc plans/needs. 08/16/20 16:36 CT Discharge Planning Judit Domingo Comment CM met with patient to discuss discharge planning / needs. CM discussed availability of home health, rehab services, and medical equipment. Patient states she probably needs Assisted Living but she can't afford it and if it's the kind of place that takes all your money to pay for it, how would she get her cigarettes and wine. She then said that her plan would be to return home at discharge. CM asked patient if she would be willing to consider inpatient rehab if she qualified. Patient stated she wasn't wanting to move in her indefinitely. CM explained that inpatient rehab would be short term. Just long enough to help her get strong enough that she could take care of herself when she went back home. Patient then stated she would be willing to consider that if the doctor thought she needed it. CM obtained verbal consent to speak with patient's sister, Luisa Sam, and her Niece, Teresa Shine, . Patient states she doesn't have a PCP. CM asked patient if she wasn't seeing Dr. Maya any longer and patient replied "No". CM was notified by ER nurse, Cathy, that patient's niece had called concerned about patient going back home. CM called and spoke with niece, Teresa. Teresa informed CM that she felt her aunt had progressively gotten weaker over the last three weeks. She is very concerned and doesn't think the patient is able to take care of herself at home right now. CM and nishila discussed Home Health-niece states [facility] from [facility], [facility], [facility] Facilities, [facility] Facilities and Inpatient Rehab. When CM asked niece about ETOH use, Niece states she has talked to her aunt at several different times a day and that her aunt never sounds intoxicated. Nishila states she and her mother will encourage patient to participate in therapy so she can get strong enough to return home. CM will continue to follow. DCP Focus Questions & Answers DCP Screen High Risk Factors: 3 or more ED visits within the last 60 days DCP Evaluation Patient gives permission to discuss discharge Racheal Phillips, plans with: (name, relationship and number) Luisa Sam, Sister, Patient's ability to cope with chronic illness d. No chronic illness Patient's current cognitive status: *Oriented to person, place, situation, time and present Physical Status: Compromised nutritional status Baseline cognitive status: *Oriented to person, place, situation, time and present Medication Management: Patient states can afford medications Pharmacy name(s): [facility] Does Patient have transportation to get home and Yes to follow-up medical appointments when discharged from the hospital? Would patient like to participate in any Care Not applicable Coordination programs (if applicable): Does the patient have electricity at home? Yes Does the patient have running water in their Yes house? Equipment in use: Nebulizer Equipment agency name and contact information: [facility] screen: No mental health history Psychosocial status: Independent adult (65+) Abuse/Neglect: Alcohol use - History of Resources / Services in place: Home health DCP Re-evaluation Would patient like to participate in any Care Not applicable Coordination programs (if applicable): [facility] CAROLINE GREEN MR#: [id number] /Age/Sex/Khsyzh7-Cxd-17 /74/F /S Attending Physician Name: BETHANY ALCALA [id number] Patient Account:[id number] [facility] Page -1 of 1 All edits/amendments must be made on the electronic document DICTATION DATE: 08/20/201551 DIE TRIMMER: JEREMIAS 08/20/20 155 RPT#: [id number] DC DATE:08/19/20 STATUS: DIS IN [facility] [address] [place] [address] END OF REPORT
== END 2020-08-19 13:22 | disposition home health service (06) | DRG 189 ==
LOC: D.ER 14:06 → D.M2 17:00
PROVIDERS: Emergency Medicine; ADMIT Family Medicine; ATTEND Family Medicine
DX: J96.21 Acute and chronic respiratory failure with hypoxia (principal); F17.213 Nicotine dependence, cigarettes, with withdrawal; Z91.19 Patient's noncompliance with other medical treatment and regimen; F10.20 Alcohol dependence, uncomplicated; E87.6 Hypokalemia; D75.89 Other specified diseases of blood and blood-forming organs; I10 Essential (primary) hypertension; K21.9 Gastro-esophageal reflux disease without esophagitis; Z91.14 Patient's other noncompliance with medication regimen; F32.9 Major depressive disorder, single episode, unspecified; J20.9 Acute bronchitis, unspecified; J43.9 Emphysema, unspecified